=== PATIENT | female | born 1990 | race Caucasian/White ===

== ENCOUNTER → 2020-06-27 | Outpatient (CLI) | payer OTHER ==
--- NOTE | 2020-06-27 13:10 | US ---
EXAMINATION TYPE: US gallbladder DATE OF EXAM: 06/27/2020 COMPARISON: NONE CLINICAL HISTORY: R10.11 right upper quadrant pain. EXAM MEASUREMENTS: Liver Length: 21.1 cm Gallbladder Wall: 0.2 cm CBD: 0.3 cm Right Kidney: 12.3 x 5.3 x 6.8 cm Pancreas: Obscured by bowel gas Liver: Enlarged, attenuating. Hypoechoic area visualized adjacent to gallbladder measuring 1.7 x 1.3 x 2.0 cm, possible focal fatty sparring Gallbladder: Tiny echogenic foci visualized 0.4 cm Evidence for sonographic Claros's sign: no CBD: wnl as visualized, obscured by bowel gas Right Kidney: No hydronephrosis or masses seen IMPRESSION: 1. Mild fatty infiltration liver and hepatomegaly. 2. Tiny gallstones may be present
== END | disposition home or self-care (01) ==
LOC: RADUSWWP 10:59
PROVIDERS: ATTEND Surgery
DX: K76.0 Fatty (change of) liver, not elsewhere classified (principal); R16.0 Hepatomegaly, not elsewhere classified
CPT/HCPCS: 76705

== ENCOUNTER → 2020-10-15 | Outpatient (CLI) | payer OTHER ==
--- NOTE | 2020-10-15 16:08 | NM ---
EXAMINATION TYPE: NM hepatobiliary w EF DATE OF EXAM: 10/15/2020 COMPARISON: Gallbladder ultrasound June 27, 2020 HISTORY: Cholecystitis per order. Right upper quadrant pain. Heartburn and nausea. TECHNIQUE: After the intravenous administration of 4.5 mCi Tc 99m Mebrofenin hepatobiliary scintigrap hy is performed. Immediate images post injection. FINDINGS: There is satisfactory initial accumulation of tracer by the liver. The gallbladder is visualized wit hin 45 minutes. The small bowel activity is bowel wall seen even after 60 minutes. At one hour 8 ou nces of oral ensure plus is given to mimic CCK and gallbladder ejection fraction is calculated at 51 %, in the normal range. Therefore there is no scintigraphic evidence of cystic or common bile duct o bstruction to suggest acute cholecystitis or gallbladder dyskinesia. IMPRESSION: Exam is within normal limits.
== END ==
LOC: RADNMMAIN 06:46
PROVIDERS: ATTEND Family Medicine
DX: K81.9 Cholecystitis, unspecified (principal)
CPT/HCPCS: 78226; A9537

== ENCOUNTER 2021-04-10 08:31 | Inpatient (IN) | payer OTHER ==
[2021-04-10] MEDS ORDERED: SODIUM CHLORIDE 0.9% 1,000 ML IV ONE (08:48)
[2021-04-10] MEDS ORDERED: KETOROLAC 15 MG/ML 1 ML VIAL IVP STA (08:48)
--- NOTE | 2021-04-10 09:01 | ED ---
General Adult HPI - General Chief complaint: Extremity Injury, Lower Stated complaint: possible leg infection Time Seen by Provider: 04/10/21 08:36 Source: patient, RN notes reviewed, old records reviewed Mode of arrival: ambulatory Limitations: no limitations - History of Present Illness Initial comments: 30-year-old female presenting with right leg pain, pain and swelling in her groin and bilateral armpits. She has a history of hidradenitis. She is currently on Keflex asthma 2 weeks. She states that she's had low-grade fevers at home. She has had multiple abscesses that have been draining in both armpits and bilateral groins. She believes that the symptoms in her right leg are coming from infection in the right buttock. She denies trauma. She denies current . Denies URI symptoms. - Related Data Home Medications Medication Instructions Recorded Confirmed ALPRAZolam [Xanax] 0.25 mg PO DAILY PRN 04/10/21 04/10/21 Biotin 5 mg PO DAILY 04/10/21 04/10/21 Cephalexin [Keflex] 500 mg PO BID 04/10/21 04/10/21 Dapagliflozin Propanediol [Farxiga] 10 mg PO DAILY 04/10/21 04/10/21 Dextroamphetamine/Amphetamine 10 mg PO DAILY 04/10/21 04/10/21 [Dextroamp-Amphetamin 10 mg Tab] Levothyroxine Sodium [Synthroid] 300 mcg PO DAILY 04/10/21 04/10/21 Metoclopramide [Reglan] 5 mg PO AC-BID 04/10/21 04/10/21 Topiramate 50 mg PO BID 04/10/21 04/10/21 Warfarin [Coumadin] 7.5 mg PO DAILY 04/10/21 04/10/21 glipiZIDE [Glucotrol] 10 mg PO AC-BID 04/10/21 04/10/21 hydroCHLOROthiazide [Hydrodiuril] 25 mg PO DAILY 04/10/21 04/10/21 Allergies Allergy/AdvReac Type Severity Reaction Status Date / Time pregabalin [From Lyrica] Allergy Swelling Verified 04/10/21 10:25 Review of Systems ROS Statement: Those systems with pertinent positive or pertinent negative responses have been documented in the HPI. ROS Other: All systems not noted in ROS Statement are negative. Past Medical History Past Medical History: Diabetes Mellitus, Pulmonary Embolus (PE) Additional Past Medical History / Comment(s): DM type 2 History of Any Multi-Drug Resistant Organisms: None Reported Past Surgical History: Section Additional Past Surgical History / Comment(s): right leg debridement Past Psychological History: Anxiety Smoking Status: Current every day smoker Past Alcohol Use History: None Reported Past Drug Use History: None Reported General Exam Limitations: no limitations General appearance: alert, in no apparent distress Head exam: Present: atraumatic, normocephalic Eye exam: Present: normal appearance, PERRL ENT exam: Present: normal exam Neck exam: Present: normal inspection. Absent: tenderness, meningismus Respiratory exam: Present: normal lung sounds bilaterally. Absent: respiratory distress, wheezes Cardiovascular Exam: Present: normal rhythm, tachycardia GI/Abdominal exam: Present: soft. Absent: distended, tenderness, guarding External exam: Present: other (Induration and tenderness to palpation right groin. There is some evidence of previous drainage, not actively draining.) Extremities exam: Absent: pedal edema, calf tenderness Neurological exam: Present: alert, oriented X3, CN II-XII intact. Absent: motor sensory deficit Psychiatric exam: Present: normal affect, normal mood Skin exam: Present: warm, other (Induration, with multiple areas of previously draining abscesses in both axilla. No current cellulitis or fluctuant abscess. Groin with previously drained abscesses, induration and some minimal cellulitis into the right buttock with induration. Possible area of fluctuance right groin. ) Course Vital Signs 04/10/21 08:32 Temperature 97.5 F L Pulse Rate 128 H Respiratory 18 Rate Blood Pressure 129/76 O2 Sat by Pulse 99 Oximetry Medical Decision Making - Medical Decision Making 30-year-old female with hidradenitis of impetigo presenting with multiple draining abscesses both axilla, groin and right buttocks. The most significant of these is in the right groin. There is felt to be induration, tenderness to palpation, possible area of fluctuance although poorly defined. Patient has a white count of 20,000 and has been on oral antibiotics for the past 2 weeks. I did recommend admission for IV antibiotics. I discussed case with Dr. Dunn who will admit. Gen. surgery was placed on consult for evaluation. Diagnosis: Hidradenitis suppurativa, multiple cutaneous abscesses, failed outpatient treatment. - Lab Data Result diagrams: 04/10/21 08:58 04/10/21 08:58 Lab Results 04/10/21 04/10/21 04/10/21 Range/Units 08:58 08:58 08:58 WBC 19.5 H (3.8-10.6) k/uL RBC 5.28 (3.80-5.40) m/uL Hgb 16.3 H (11.4-16.0) gm/dL Hct 48.1 H (34.0-46.0) % MCV 91.0 (80.0-100.0) fL MCH 30.8 (25.0-35.0) pg MCHC 33.9 (31.0-37.0) g/dL RDW 14.1 (11.5-15.5) % Plt Count 195 (150-450) k/uL MPV 8.0 Neutrophils % 87 % Lymphocytes % 8 % Monocytes % 4 % Eosinophils % 1 % Basophils % 0 % Neutrophils # 17.1 H (1.3-7.7) k/uL Lymphocytes # 1.5 (1.0-4.8) k/uL Monocytes # 0.7 (0-1.0) k/uL Eosinophils # 0.2 (0-0.7) k/uL Basophils # 0.0 (0-0.2) k/uL Sodium 138 (137-145) mmol/L Potassium 4.0 (3.5-5.1) mmol/L Chloride 101 (98-107) mmol/L Carbon Dioxide 23 (22-30) mmol/L Anion Gap 14 mmol/L BUN 13 (7-17) mg/dL Creatinine 0.82 (0.52-1.04) mg/dL Est GFR (CKD-EPI)AfAm >90 (>60 ml/min/1.73 sqM) Est GFR (CKD-EPI)NonAf >90 (>60 ml/min/1.73 sqM) Glucose 235 H (74-99) mg/dL Plasma Lactic Acid Dell 1.7 (0.7-2.0) mmol/L Calcium 9.9 (8.4-10.2) mg/dL Magnesium 2.3 (1.6-2.3) mg/dL Total Bilirubin 1.0 (0.2-1.3) mg/dL AST 23 (14-36) U/L ALT 21 (4-34) U/L Alkaline Phosphatase 115 (38-126) U/L Total Protein 7.9 (6.3-8.2) g/dL Albumin 4.7 (3.5-5.0) g/dL Disposition Clinical Impression: Abscess of groin, right, Hidradenitis suppurativa Disposition: ADMITTED IP TO THIS [facility] Condition: Stable Is patient prescribed a controlled substance at d/c from ED?: No Referrals: Rodrick Rose MD [Primary Care Provider] - 1-2 days Decision to Admit Reason: Admit from EC Decision Date: 04/10/21 Decision Time: 10:41
[2021-04-10 09:31] LABS: Basophils % (A) 0 %; Eosinophils # (A) 0.2 k/uL (0-0.7); Eosinophils % (A) 1 %; HCT 48.1 % (34.0-46.0); HGB 16.3 gm/dL (11.4-16.0); Lymphocytes # (A) 1.5 k/uL (1.0-4.8); Lymphocytes % (A) 8 %; MCH 30.8 pg (25.0-35.0); MCHC 33.9 g/dL (31.0-37.0); Monocytes # (A) 0.7 k/uL (0-1.0); Monocytes % (A) 4 %; Neutrophils # (A) 17.1 k/uL (1.3-7.7); Neutrophils % (A) 87 %; Platelet Count 195 k/uL (150-450); RBC 5.28 m/uL (3.80-5.40); RDW 14.1 % (11.5-15.5); WBC 19.5 k/uL (3.8-10.6)
[2021-04-10 09:50] LABS: ALT 21 U/L (4-34); AST 23 U/L (14-36); African American GFR (CKD) >90 (>60 ml/min/1.73 sqM); Albumin 4.7 g/dL (3.5-5.0); Alkaline Phosphatase 115 U/L (38-126); Anion Gap 14 mmol/L; Blood Urea Nitrogen 13 mg/dL (7-17); Calcium 9.9 mg/dL (8.4-10.2); Carbon Dioxide 23 mmol/L (22-30); Chloride 101 mmol/L (98-107); Glucose 235 mg/dL (74-99); Magnesium 2.3 mg/dL (1.6-2.3); Non-African American GFR(CKD) >90 (>60 ml/min/1.73 sqM); Sodium 138 mmol/L (137-145); Total Protein 7.9 g/dL (6.3-8.2)
[2021-04-10] MEDS ORDERED: CLINDAMYCIN 600 MG in DEXTROSE 5% IN WATER 50 ML IVPB STA ×2 (10:11)
--- NOTE | 2021-04-10 10:28 | US ---
EXAMINATION TYPE: US venous doppler duplex LE RT DATE OF EXAM: 04/10/2021 10:09 AM COMPARISON: NONE CLINICAL HISTORY: DVT. EC patient with right suprapubic abscess causing pain radiating down right thi gh; patient stated has history of PE and is on Coumadin x 3 years. SIDE PERFORMED: Right TECHNIQUE: The lower extremity deep venous system is examined utilizing real time linear array sonog rodo with graded compression, doppler sonography and color-flow sonography. VESSELS IMAGED: Common Femoral Vein Deep Femoral Vein Greater Saphenous Vein * Femoral Vein Popliteal Vein Small Saphenous Vein * Proximal Calf Veins (* superficial vessels) Right Leg: Negative for DVT At right suprapubic area of pain oval, hypoechoic fluid area is noted in skin layer = 3.1 x 2.4 x 0.4 cm. IMPRESSION: NO DVT
[2021-04-10] MEDS ORDERED: cefTRIAXone IN SWFI 1,000 MG/10 ML SYRINGE IVP STA (10:34)
[2021-04-10] MEDS ORDERED: NALOXONE 0.4 MG/ML 1 ML VIAL IV PRN (10:35)
[2021-04-10] MEDS: SODIUM CHLORIDE 0.9% 1,000 ML IV SCH ×2 (10:50→20:10)
[2021-04-10] MEDS: MORPHINE SULFATE 4 MG/ML SYRINGE IV PRN ×3 (10:53→20:09)
[2021-04-10 10:55] LABS: C Reactive Protein 22.2 mg/dL (<1.0)
[2021-04-10] MEDS: IBUPROFEN 400 MG TAB PO PRN ×2 (14:38→22:14)
[2021-04-10 20:18] LABS: Glucose,Whole Blood 191 mg/dL (75-99)
[2021-04-10] MEDS: CLINDAMYCIN 600 MG in DEXTROSE 5% IN WATER 50 ML IVPB SCH ×2 (20:20)
[2021-04-10] MEDS ORDERED: ALPRAZolam 0.25 MG TAB PO PRN (21:29)
[2021-04-10] MEDS ORDERED: DEXTROAMPHETAMINE PO SCH (21:45)
[2021-04-10] MEDS ORDERED: [UNRECOGNIZED DRUG - OTHER] PO SCH (21:45)
[2021-04-10] MEDS ORDERED: WARFARIN 7.5 MG TAB PO SCH (21:45)
[2021-04-10] MEDS ORDERED: AMPHETAMINE PO SCH (21:45)
[2021-04-10] MEDS: glipiZIDE 10 MG TAB PO SCH (21:53)
[2021-04-10 22:49] LABS: INR 1.7 (<1.2); Prothrombin Time 17.3 sec (9.0-12.0)
[2021-04-10] MEDS: METOCLOPRAMIDE 5 MG TAB PO SCH (23:05)
[2021-04-10] MEDS: TOPIRAMATE 25 MG TAB PO SCH (23:05)
[2021-04-10] MEDS ORDERED: WARFARIN 2 MG TAB PO ONE (23:15)
--- NOTE | 2021-04-10 23:55 | HP ---
HISTORY AND PHYSICAL This is a 30-year-old female with right leg pain, swelling in her groin, bilateral armpits, history of hidradenitis, started on Keflex at home. Multiple abscesses draining in both armpits and bilateral groins, coming into the infection in the right buttock. Denies any trauma. The patient had an ultrasound in the ER which showed infection in the right buttock. She was started on IV antibiotics. HOME MEDICINES: 1. Xanax 0.25 daily p.r.n. 2. Keflex 500 b.i.d. 3. Adderall 10 mg daily. 4. Synthroid 300 daily. 5. Reglan 5 mg before meals t.i.d. 6. Farxiga 10 mg daily. 7. Topiramate 50 b.i.d. 8. Coumadin 7.5 daily. 9. Glucotrol 10 mg before meals b.i.d. 10.Hydrodiuril 25 mg daily. REVIEW OF SYSTEMS: Fourteen-point review of systems otherwise is negative. Diabetes mellitus, pulmonary embolism, C-sections, right leg prior debridement, history of anxiety, depression. PHYSICAL EXAMINATION: Vital signs stable. Afebrile. Mildly tachycardic. Lungs are clear. ABDOMEN: Soft. Hematology: Negative Homans. Palpation induration right groin, previous drainage, not actively draining. Psych: Alert and oriented x3. Multiple areas of induration draining abscesses both axillae, groin previously draining abscesses, induration, cellulitis in the buttocks. White count 19.5, hemoglobin 16.3. ASSESSMENT: 1. Abscess in groin, right side. 2. Hidradenitis suppurativa. Continue with broad-spectrum antibiotics. Infectious disease consult. Home medicines will be reordered. Pain control. MMODL / IJN: [id number] /
[2021-04-11] MEDS: MORPHINE SULFATE 4 MG/ML SYRINGE IV PRN ×2 (02:05→05:55)
[2021-04-11] MEDS: CLINDAMYCIN 600 MG in DEXTROSE 5% IN WATER 50 ML IVPB SCH ×4 (02:05→12:06)
[2021-04-11] MEDS: SODIUM CHLORIDE 0.9% 1,000 ML IV SCH ×4 (03:05→22:58)
[2021-04-11] MEDS: LEVOTHYROXINE 100 MCG TAB PO SCH (05:55)
[2021-04-11 06:56] LABS: Glucose,Whole Blood 166 mg/dL (75-99)
[2021-04-11] MEDS: IBUPROFEN 400 MG TAB PO PRN ×2 (07:34→17:34)
[2021-04-11] MEDS: hydroCHLOROthiazide 25 MG TAB PO SCH (07:35)
[2021-04-11] MEDS: glipiZIDE 10 MG TAB PO SCH ×2 (07:35→17:55)
[2021-04-11] MEDS: TOPIRAMATE 25 MG TAB PO SCH ×2 (07:35→20:35)
[2021-04-11] MEDS: METOCLOPRAMIDE 5 MG TAB PO SCH ×2 (07:35→17:53)
[2021-04-11] MEDS: NON FORMULARY DRUG (Dapagliflozin Propanediol [Farxiga] 10 MG Tablet) PO SCH (07:36)
--- NOTE | 2021-04-11 08:12 | P.GSCN ---
History of Present Illness Consult date: 04/11/21 History of present illness: 30-year-old female presented to the emergency department with complaints of right groin pain. She states that she does have a history of hidradenitis suppurativa for which she has received treatment in the past. She is not on any chronic regimen for this diagnosis. She states her last episode of abscess was approximately 5 months ago. She states that she has had previous incision and drainages secondary to this issue. She states that most of the time when she has a breakout, it is a superficial abscess, however this episode is different and feels deeper. There has been some mild drainage from the right groin. She believes she has had low-grade fevers at home. She is tearful with pain during exam. Review of Systems All systems: negative Past Medical History Past Medical History: Diabetes Mellitus, Pulmonary Embolus (PE) Additional Past Medical History / Comment(s): DM type 2, History of Any Multi-Drug Resistant Organisms: None Reported Past Surgical History: Section Additional Past Surgical History / Comment(s): right leg debridement Past Psychological History: Anxiety Smoking Status: Current every day smoker Past Alcohol Use History: None Reported Past Drug Use History: None Reported Medications and Allergies Home Medications Medication Instructions Recorded Confirmed Type ALPRAZolam [Xanax] 0.25 mg PO DAILY PRN 04/10/21 04/10/21 History Biotin 5 mg PO DAILY 04/10/21 04/10/21 History Cephalexin [Keflex] 500 mg PO BID 04/10/21 04/10/21 History Dapagliflozin Propanediol [Farxiga] 10 mg PO DAILY 04/10/21 04/10/21 History Dextroamphetamine/Amphetamine 10 mg PO DAILY 04/10/21 04/10/21 History [Dextroamp-Amphetamin 10 mg Tab] Levothyroxine Sodium [Synthroid] 300 mcg PO DAILY 04/10/21 04/10/21 History Metoclopramide [Reglan] 5 mg PO AC-BID 04/10/21 04/10/21 History Topiramate 50 mg PO BID 04/10/21 04/10/21 History Warfarin [Coumadin] 7.5 mg PO DAILY 04/10/21 04/10/21 History glipiZIDE [Glucotrol] 10 mg PO AC-BID 04/10/21 04/10/21 History hydroCHLOROthiazide [Hydrodiuril] 25 mg PO DAILY 04/10/21 04/10/21 History Allergies Allergy/AdvReac Type Severity Reaction Status Date / Time pregabalin [From Lyrica] Allergy Swelling Verified 04/10/21 10:25 Surgical - Exam Osteopathic Statement: *. No significant issues noted on an osteopathic structural exam other than those noted in the History and Physical/Consult. Vital Signs Temp Pulse Resp BP Pulse Ox 97.5 F L 128 H 18 129/76 99 04/10/21 08:32 04/10/21 08:32 04/10/21 08:32 04/10/21 08:32 04/10/21 08:32 - General well nourished - Eyes normal ocular movement - ENT no hearing loss - Neck trachea midline - Respiratory normal respiratory effort - Abdomen Abdomen: soft, non tender - Genitourinary Right pubis with palpable induration, mild grayish drainage, painful and tender to touch, no significant erythema - Psychiatric oriented to time, oriented to person, oriented to place Results - Labs 04/10/21 08:58 04/10/21 08:58 Abnormal Lab Results - Last 24 Hours (Table) 04/10/21 04/10/21 04/10/21 Range/Units 08:58 08:58 20:16 WBC 19.5 H (3.8-10.6) k/uL Hgb 16.3 H (11.4-16.0) gm/dL Hct 48.1 H (34.0-46.0) % Neutrophils # 17.1 H (1.3-7.7) k/uL PT (9.0-12.0) sec INR (<1.2) Glucose 235 H (74-99) mg/dL POC Glucose (mg/dL) 191 H (75-99) mg/dL C-Reactive Protein 22.2 H (<1.0) mg/dL 04/10/21 04/11/21 Range/Units 22:35 06:54 WBC (3.8-10.6) k/uL Hgb (11.4-16.0) gm/dL Hct (34.0-46.0) % Neutrophils # (1.3-7.7) k/uL PT 17.3 H (9.0-12.0) sec INR 1.7 H (<1.2) Glucose (74-99) mg/dL POC Glucose (mg/dL) 166 H (75-99) mg/dL C-Reactive Protein (<1.0) mg/dL Diabetes panel 04/10/21 Range/Units 08:58 Sodium 138 (137-145) mmol/L Potassium 4.0 (3.5-5.1) mmol/L Chloride 101 (98-107) mmol/L Carbon Dioxide 23 (22-30) mmol/L BUN 13 (7-17) mg/dL Creatinine 0.82 (0.52-1.04) mg/dL Glucose 235 H (74-99) mg/dL Calcium 9.9 (8.4-10.2) mg/dL AST 23 (14-36) U/L ALT 21 (4-34) U/L Alkaline Phosphatase 115 (38-126) U/L Total Protein 7.9 (6.3-8.2) g/dL Albumin 4.7 (3.5-5.0) g/dL Calcium panel 04/10/21 Range/Units 08:58 Calcium 9.9 (8.4-10.2) mg/dL Albumin 4.7 (3.5-5.0) g/dL Pituitary panel 04/10/21 Range/Units 08:58 Sodium 138 (137-145) mmol/L Potassium 4.0 (3.5-5.1) mmol/L Chloride 101 (98-107) mmol/L Carbon Dioxide 23 (22-30) mmol/L BUN 13 (7-17) mg/dL Creatinine 0.82 (0.52-1.04) mg/dL Glucose 235 H (74-99) mg/dL Calcium 9.9 (8.4-10.2) mg/dL Adrenal panel 04/10/21 Range/Units 08:58 Sodium 138 (137-145) mmol/L Potassium 4.0 (3.5-5.1) mmol/L Chloride 101 (98-107) mmol/L Carbon Dioxide 23 (22-30) mmol/L BUN 13 (7-17) mg/dL Creatinine 0.82 (0.52-1.04) mg/dL Glucose 235 H (74-99) mg/dL Calcium 9.9 (8.4-10.2) mg/dL Total Bilirubin 1.0 (0.2-1.3) mg/dL AST 23 (14-36) U/L ALT 21 (4-34) U/L Alkaline Phosphatase 115 (38-126) U/L Total Protein 7.9 (6.3-8.2) g/dL Albumin 4.7 (3.5-5.0) g/dL Assessment and Plan Plan: 30-year-old female with abscess versus cellulitis of the right groin. Likely secondary to history of hidradenitis suppurativa. Pain medications were adjusted. Infectious disease consultation is pending for antibiotic coverage. Ultrasound has been ordered to evaluate for any fluid buildup that may require drainage as there is no palpable fluctuance on exam. Further recommendations after ultrasound is completed.
[2021-04-11] MEDS: KETOROLAC 15 MG/ML 1 ML VIAL IVP SCH ×4 (08:42→22:57)
[2021-04-11] MEDS ORDERED: NON FORMULARY DRUG (Biotin [Biotin] 5 MG Capsule) PO SCH (09:00)
[2021-04-11 09:29] LABS: INR 1.58 (0.90-1.11); Prothrombin Time 16.7 sec (9.9-11.9)
[2021-04-11] MEDS: HYDROmorphone 1 MG/ML 1 ML SYRINGE IVP PRN ×4 (10:41→22:07)
--- NOTE | 2021-04-11 11:06 | US ---
EXAMINATION TYPE: US groin RT DATE OF EXAM: 04/11/2021 COMPARISON: US CLINICAL HISTORY: eval for abscess. Swelling at pubis to groin. Abscess. Superficial lesion seen. Area of concern scanned. Inflammation seen. Superficial abscess - 3.3 x 1.6 x 0.4 cm Diffuse subcutaneous edema with superficial elongated hypoechoic area as detailed above. No thick wal led drainable abscess. IMPRESSION: As above.
[2021-04-11 11:27] LABS: Glucose,Whole Blood 144 mg/dL (75-99)
[2021-04-11] MEDS: ACETAMINOPHEN TAB 325 MG TAB PO PRN (15:05)
[2021-04-11 16:30] LABS: Glucose,Whole Blood 185 mg/dL (75-99)
[2021-04-11] MEDS ORDERED: VANCOMYCIN 1,000 MG in SODIUM CHLORIDE 0.9% 250 ML IVPB STA (17:29)
[2021-04-11] MEDS ORDERED: IPRATROPIUM-ALBUTEROL 3 ML NEB INHALATION STA (17:31)
[2021-04-11] MEDS ORDERED: VANCOMYCIN IV PER PHARMACY 1 EACH MISC MISCELLANE PRN (17:35)
[2021-04-11] MEDS: VANCOMYCIN 2,000 MG in SODIUM CHLORIDE 0.9% 500 ML 500 ML IVPB SCH (17:45)
[2021-04-11] MEDS ORDERED: WARFARIN 2 MG TAB PO ONE (18:00)
--- NOTE | 2021-04-11 18:00 | XR ---
EXAMINATION TYPE: XR chest 1V portable DATE OF EXAM: 04/11/2021 COMPARISON: NONE HISTORY: Difficulty breathing TECHNIQUE: Single frontal view of the chest is obtained. FINDINGS: Low lung volumes which accentuates the cardiomediastinal silhouette. Prominence of the lung interstit ium likely secondary to low lung volumes. No dense focal consolidation, pleural effusion, or pneumoth orax. Visualized osseous structures appear intact. IMPRESSION: 1. Low lung volumes which accentuates the cardiomediastinal silhouette and lung interstitium. 2. No definite acute cardiopulmonary process.
[2021-04-11] MEDS: IPRATROPIUM-ALBUTEROL 3 ML NEB INHALATION SCH (18:09)
[2021-04-11 20:25] LABS: Glucose,Whole Blood 222 mg/dL (75-99)
[2021-04-11] MEDS: AMPICILLIN-SULBACTAM 3 GM in SODIUM CHLORIDE 0.9% 100 ML IVPB SCH (22:57)
--- NOTE | 2021-04-12 00:18 | P.CONS ---
History of Present Illness - Reason for Consult Consult date: 04/11/21 Groin abscess Requesting physician: Rodrick Rose - Chief Complaint right groin painful swelling x days - History of Present Illness History of present illness : Patient is a 30-year female presenting to the hospital yesterday morning for evaluation of the right groin pain in this patient who did have history of hidradenitis and a history of chronic skin source of infection patient started having a problem with the painful lump in the right groin area that has gradually increased in size becoming more painful patient describes the pain to be more of a throbbing almost 10 out of 10 in severity patient did have some chills but denies high-grade fever patient on presentation to the hospital was afebrile she did spike a fever this afternoon of 103 degrees forearm height patient has been tachycardic patient did have white count of 19.5 as of yesterday not repeated today did have normal kidney function as well as normal liver enzymes CRP was elevated blood culture previously currently pending patient did have a groin ultrasound which shows a superficial abscess 3.3 X1.6 x 0.4 cm general surgery is on the case, infectious disease was consulted for further management of antibiotic therapy Review of system: CONSTITUTIONAL: Positive for weakness along with the fever. EYES: No complaint. ENT: No complaint. RESPIRATORY: No complaint. CARDIOVASCULAR: No complaint. GENITOURINARY: No complaint. GASTROINTESTINAL: No complaint. MUSCULOSKELETAL: No complaint. INTEGUMENTARY: As per history of present illness. PSYCHOLOGIC: No complaint. ENDOCRINE: No complaint. NEUROLOGIC: No complaint. Past medical history : Reviewed, documented below Past surgical history : Reviewed, documented below Social history: Reviewed, documented below Medications: Reviewed, as documented below EXAMINATION: Vital sigans= Reviewed and documented below GENERAL DESCRIPTION: Middle-aged female lying in bed, no distress. No tachypnea or accessory muscle of respiration use. HEENT: Shows Pallor , no scleral icterus. Oral mucous membrane is dry. NECK: Trachea central, no thyromegaly. LUNGS: Unlabored breathing. Clear to auscultation anteriorly. No wheeze or cr ackle. HEART: S1, S2, regular rate and rhythm. ABDOMEN: Soft, no tenderness , guarding or rigidity, right groin and labia did have a swelling induration no significant drainage was noticed EXTREMITIES: No edema of feet. SKIN: No rash, no masses palpable. NEUROLOGICAL: The patient is awake, alert, oriented x3, mood and affect normal. LABS AND RADIOLOGY: Reviewed results see below Assessment : Patient presented to hospital with sepsis in this we did have a fever elevated white count source is right groin abscess as seen on the ultrasound and likely from gram-positive skin ian such as MRSA to the likely pathogen this likely gram-negative infection Plan: 1-discontinue clindamycin 2-vancomycin pharmacy to dose her with a target trough of 15 while watching her kidney function and Vanco trough closely. 3-Unasyn 3 g every 6 hours 4-await surgical drainage and deep cultures We will follow on clinical condition and cultures to further adjust medication if needed Thank you for this consultation we will follow the patient along with you Past Medical History Past Medical History: Diabetes Mellitus, Pulmonary Embolus (PE) Additional Past Medical History / Comment(s): DM type 2, History of Any Multi-Drug Resistant Organisms: None Reported Past Surgical History: Section Additional Past Surgical History / Comment(s): right leg debridement Past Psychological History: Anxiety Smoking Status: Current every day smoker Past Alcohol Use History: None Reported Past Drug Use History: None Reported Medications and Allergies Home Medications Medication Instructions Recorded Confirmed Type ALPRAZolam [Xanax] 0.25 mg PO DAILY PRN 04/10/21 04/10/21 History Biotin 5 mg PO DAILY 04/10/21 04/10/21 History Cephalexin [Keflex] 500 mg PO BID 04/10/21 04/10/21 History Dapagliflozin Propanediol [Farxiga] 10 mg PO DAILY 04/10/21 04/10/21 History Dextroamphetamine/Amphetamine 10 mg PO DAILY 04/10/21 04/10/21 History [Dextroamp-Amphetamin 10 mg Tab] Levothyroxine Sodium [Synthroid] 300 mcg PO DAILY 04/10/21 04/10/21 History Metoclopramide [Reglan] 5 mg PO AC-BID 04/10/21 04/10/21 History Topiramate 50 mg PO BID 04/10/21 04/10/21 History Warfarin [Coumadin] 7.5 mg PO DAILY 04/10/21 04/10/21 History glipiZIDE [Glucotrol] 10 mg PO AC-BID 04/10/21 04/10/21 History hydroCHLOROthiazide [Hydrodiuril] 25 mg PO DAILY 04/10/21 04/10/21 History Allergies Allergy/AdvReac Type Severity Reaction Status Date / Time pregabalin [From Lyrica] Allergy Swelling Verified 04/10/21 10:25 Physical Exam Vitals: Vital Signs Temp Pulse Pulse Resp BP BP Pulse Ox 04/11/21 07:49 98.9 F 100 18 108/70 95 04/11/21 00:54 98.7 F 91 15 116/66 95 04/10/21 19:10 98.1 F 94 16 102/58 95 04/10/21 17:30 98.4 F 97 18 126/58 96 Intake and Output 04/10/21 04/11/21 04/11/21 22:59 06:59 14:59 Other: Voiding Method Toilet Weight 122.47 kg Results CBC & Chem 7: 04/10/21 08:58 04/10/21 08:58 Labs: Abnormal Lab Results - Last 24 Hours (Table) 04/10/21 04/10/21 04/11/21 Range/Units 20:16 22:35 04:58 PT 17.3 H 16.7 H (9.0-12.0) sec INR 1.7 H 1.58 H (<1.2) POC Glucose (mg/dL) 191 H (75-99) mg/dL 04/11/21 04/11/21 Range/Units 06:54 11:26 PT (9.0-12.0) sec INR (<1.2) POC Glucose (mg/dL) 166 H 144 H (75-99) mg/dL Microbiology - Last 24 Hours (Table) 04/10/21 08:58 Blood Culture - Preliminary Blood No Growth after 24 hours 04/10/21 08:58 Blood Culture - Preliminary Blood No Growth after 24 hours
[2021-04-12] MEDS: HYDROmorphone 1 MG/ML 1 ML SYRINGE IVP PRN ×7 (02:34→23:05)
[2021-04-12] MEDS: AMPICILLIN-SULBACTAM 3 GM in SODIUM CHLORIDE 0.9% 100 ML IVPB SCH ×4 (05:54→23:06)
[2021-04-12] MEDS: KETOROLAC 15 MG/ML 1 ML VIAL IVP SCH ×4 (05:54→23:06)
[2021-04-12] MEDS: LEVOTHYROXINE 100 MCG TAB PO SCH (05:57)
[2021-04-12] MEDS: VANCOMYCIN 2,000 MG in SODIUM CHLORIDE 0.9% 500 ML 500 ML IVPB SCH ×2 (06:31→18:27)
[2021-04-12 06:46] LABS: Glucose,Whole Blood 175 mg/dL (75-99)
[2021-04-12 07:11] LABS: INR 2.9 (<1.2); Prothrombin Time 27.9 sec (9.0-12.0)
[2021-04-12] MEDS: NON FORMULARY DRUG (Dapagliflozin Propanediol [Farxiga] 10 MG Tablet) PO SCH (07:26)
[2021-04-12] MEDS: glipiZIDE 10 MG TAB PO SCH ×2 (07:40→17:32)
[2021-04-12] MEDS: TOPIRAMATE 25 MG TAB PO SCH ×2 (07:40→19:56)
[2021-04-12] MEDS: hydroCHLOROthiazide 25 MG TAB PO SCH (07:40)
[2021-04-12] MEDS: IBUPROFEN 400 MG TAB PO PRN (07:40)
[2021-04-12] MEDS: METOCLOPRAMIDE 5 MG TAB PO SCH ×2 (07:40→17:32)
[2021-04-12] MEDS: SODIUM CHLORIDE 0.9% 1,000 ML IV SCH (07:44)
[2021-04-12] MEDS ORDERED: LIDOCAINE 1% (PF) 10 MG/ML (30 ML SDV) SQ ONE (08:30)
[2021-04-12] MEDS: IPRATROPIUM-ALBUTEROL 3 ML NEB INHALATION SCH ×4 (08:41→20:13)
[2021-04-12 09:16] LABS: Basophils # (A) 0.07 X 10*3/uL (0.00-0.10); Basophils % (A) 0.4 %; Eosinophils # (A) 0.08 X 10*3/uL (0.04-0.35); Eosinophils % (A) 0.5 %; HCT 37.9 % (37.2-46.3); Lymphocytes # (A) 1.32 X 10*3/uL (0.90-5.00); Lymphocytes % (A) 7.4 %; MCH 28.6 pg (27.0-32.0); MCHC 31.7 g/dL (32.0-37.0); MCV 90.5 fL (80.0-97.0); Mean Platelet Volume 11.2 fL (9.5-12.2); Monocytes # (A) 1.25 X 10*3/uL (0.20-1.00); Monocytes % (A) 7.1 %; Neutrophils # (A) 14.79 X 10*3/uL (1.80-7.70); Neutrophils % (A) 83.4 %; Platelet Count 185 X 10*3/uL (140-440); RBC 4.19 X 10*6/uL (4.10-5.20); RDW 14.4 % (11.5-14.5); WBC 17.73 X 10*3/uL (4.50-10.00)
--- NOTE | 2021-04-12 09:35 | P.CNPUL ---
History of Present Illness Consult date: 04/12/21 Reason for consult: dyspnea, hypoxemia Chief complaint: Shortness of breath History of present illness: This is a pleasant 30-year-old female came into the hospital with right chronic infection and abscess formation, she has been admitted into the hospital through the emergency department, main symptoms were swelling and pain in the right leg and right groin also had discomfort in the armpits as well as, patient does have a history of hidradenitis, she takes Keflex for last 2 weeks, patient started having fever is low-grade at home also new abscess formation noted came into the hospital for further evaluation, Dr. Lambert from infectious disease is following as well, patient does have a significant history of the severe morbid obesity, anxiety disorder, recurrent pulmonary embolism type 2 diabetes mellitus and p ossible surgical services in the right [facility] patient does smoke about 1 pack per day, currently patient is on 2 L oxygen due to shortness of breath, on arrival she was noted to have white cell count 19,500, with a BUN/creatinine 13.3, right lower extremity ultrasound negative for DVT, ultrasound of the right groin revealed superficial abscess 3.31.614 cm in size, currently patient is on bronchodilator IV Unasyn, IV vancomycin, her oral hypoglycemic agent along with Coumadin, her chest x-ray done yesterday no acute active cardiopulmonary disease however small lung volumes has been noted Review of Systems All systems: negative Past Medical History Past Medical History: Diabetes Mellitus, Pulmonary Embolus (PE) Additional Past Medical History / Comment(s): DM type 2, History of Any Multi-Drug Resistant Organisms: None Reported Past Surgical History: Section Additional Past Surgical History / Comment(s): right leg debridement Past Psychological History: Anxiety Smoking Status: Current every day smoker Past Alcohol Use History: None Reported Past Drug Use History: None Reported Medications and Allergies Home Medications Medication Instructions Recorded Confirmed Type ALPRAZolam [Xanax] 0.25 mg PO DAILY PRN 04/10/21 04/10/21 History Biotin 5 mg PO DAILY 04/10/21 04/10/21 History Cephalexin [Keflex] 500 mg PO BID 04/10/21 04/10/21 History Dapagliflozin Propanediol [Farxiga] 10 mg PO DAILY 04/10/21 04/10/21 History Dextroamphetamine/Amphetamine 10 mg PO DAILY 04/10/21 04/10/21 History [Dextroamp-Amphetamin 10 mg Tab] Levothyroxine Sodium [Synthroid] 300 mcg PO DAILY 04/10/21 04/10/21 History Metoclopramide [Reglan] 5 mg PO AC-BID 04/10/21 04/10/21 History Topiramate 50 mg PO BID 04/10/21 04/10/21 History Warfarin [Coumadin] 7.5 mg PO DAILY 04/10/21 04/10/21 History glipiZIDE [Glucotrol] 10 mg PO AC-BID 04/10/21 04/10/21 History hydroCHLOROthiazide [Hydrodiuril] 25 mg PO DAILY 04/10/21 04/10/21 History Allergies Allergy/AdvReac Type Severity Reaction Status Date / Time pregabalin [From Lyrica] Allergy Swelling Verified 04/10/21 10:25 Physical Exam Vitals: Vital Signs Temp Pulse Pulse Resp BP Pulse Ox 04/12/21 09:06 110 H 04/12/21 08:41 102 H 04/12/21 07:53 99.8 F H 100 18 106/68 96 04/12/21 02:00 98.3 F 99 20 122/72 96 04/11/21 19:53 99.4 F 106 H 20 107/70 95 04/11/21 18:26 98.6 F 04/11/21 18:15 114 H 18 04/11/21 18:09 97 04/11/21 18:06 106 H 18 04/11/21 17:43 93 L 04/11/21 17:42 102.2 F H 124 H 20 130/68 86 L 04/11/21 15:07 103.1 F H 04/11/21 14:00 99.3 F 109 H 17 141/76 97 Intake and Output 04/11/21 04/12/21 04/12/21 22:59 06:59 14:59 Other: # Voids 3 1 - Constitutional General appearance: disheveled, morbidly obese - EENT Eyes: PERRLA Ears: bilateral: normal - Neck Carotids: bilateral: upstroke normal - Respiratory Respiratory: bilateral: CTA - Cardiovascular Heart sounds: normal: S1 Abnormal Heart Sounds: systolic murmur - Gastrointestinal General gastrointestinal: soft - Integumentary Right groin erythematous indurated inflammatory changes with brownish discharge - Neurologic Neurologic: CNII-XII intact - Musculoskeletal Musculoskeletal: generalized weakness - Psychiatric Psychiatric: appropriate affect, intact judgment & insight Results - Laboratory Findings CBC and BMP: 04/12/21 06:14 04/10/21 08:58 PT/INR, D-dimer PT 27.9 sec (9.0-12.0) H 04/12/21 06:14 INR 2.9 (<1.2) H 04/12/21 06:14 D-Dimer 0.52 mg/L FEU (<0.60) 04/11/21 16:57 Abnormal lab findings: Abnormal Labs 04/10/21 04/10/21 04/10/21 08:58 08:58 20:16 WBC 19.5 H Hgb 16.3 H Hct 48.1 H MCHC Immature Gran # Neutrophils # 17.1 H Monocytes # PT INR Glucose 235 H POC Glucose (mg/dL) 191 H C-Reactive Protein 22.2 H 04/10/21 04/11/21 04/11/21 22:35 04:58 06:54 WBC Hgb Hct MCHC Immature Gran # Neutrophils # Monocytes # PT 17.3 H 16.7 H INR 1.7 H 1.58 H Glucose POC Glucose (mg/dL) 166 H C-Reactive Protein 04/11/21 04/11/21 04/11/21 11:26 16:29 20:24 WBC Hgb Hct MCHC Immature Gran # Neutrophils # Monocytes # PT INR Glucose POC Glucose (mg/dL) 144 H 185 H 222 H C-Reactive Protein 04/12/21 04/12/21 04/12/21 06:14 06:14 06:45 WBC 17.73 H Hgb Hct MCHC 31.7 L Immature Gran # 0.22 H Neutrophils # 14.79 H Monocytes # 1.25 H PT 27.9 H INR 2.9 H Glucose POC Glucose (mg/dL) 175 H C-Reactive Protein - Diagnostic Findings Chest x-ray: report reviewed, image reviewed (Finding as noted above) Assessment and Plan Assessment: Acute hypoxic respiratory failure due to sepsis obesity hypoventilation syndrome and history of pulmonary embolism Likely sleep disorder breathing and sleep apnea to be evaluated on outpatient b asis for sleep apnea Right groin abscess formation History of prior pulmonary embolism currently denies any chest pain or shortness of breath to that extent Morbid obesity and likely sleep disorder breathing and sleep apnea Plan: Continue anticoagulation as per plan Continue deep breathing exercises incentive spirometry Broad-spectrum antibiotics Sleep study as outpatient Time with Patient: Greater than 30
[2021-04-12 09:47] LABS: African American GFR (CKD) 113.9 (60.0-200.0); Albumin 3.7 g/dL (3.80-4.90); Albumin/Globulin Ratio 1.68 (1.60-3.17); Anion Gap 9.3 mmol/L (4.00-12.00); BUN/Creat Ratio 18.75 Ratio (12.00-20.00); Calcium 8.5 mg/dL (8.7-10.3); Carbon Dioxide 20.7 mmol/L (21.6-31.8); Globulin 2.2 g/dL (1.6-3.3); Non-African American GFR(CKD) 98.2 (60.0-200.0); Potassium 3.7 mmol/L (3.5-5.5); Total Bilirubin 0.7 mg/dL (0.2-1.2); Total Protein 5.9 g/dL (6.2-8.2)
[2021-04-12 11:51] LABS: Glucose,Whole Blood 118 mg/dL (75-99)
--- NOTE | 2021-04-12 11:51 | P.PCN ---
Date of Procedure: 04/12/21 Preoperative Diagnosis: Abscess and cellulitis Postoperative Diagnosis: Right-sided groin abscess with cellulitis Procedure(s) Performed: incision and drainage of abscess Anesthesia: local Surgeon: Will Valle Pathology: other (Culture of abscess) Condition: stable Disposition: no change Indications for Procedure: 30-year-old female is admitted secondary to cellulitis and abscess. She is on IV antibiotics. Over last 24 hours, patient did have febrile episode and tachycardia. Ultrasound revealed a superficial abscess. Prior to my arrival today, patient did have spontaneous evacuation of turbid fluid from this area. There does appear to be additional fluid requiring evacuation. Risks, benefits and alternatives were provided to the patient. She did provide consent prior to procedure. Operative Findings: Drainage of turbid fluid Description of Procedure: Patient was prepped and draped in regular sterile fashion. Local anesthetic was administered. A incision was made over the abscess cavity. Loculations were broken with instrumentation. Evacuation of turbid fluid was noted. Cultures were taken. Wound was then packed. Some bleeding was noted as the patient is on anticoagulation. This will be monitored. An additional incision was made superior to this incision as there was additional concern for abscess at this site. Mild amount of purulent material was noted. This wound was also packed in similar fashion. Patient tolerated the procedure well.
[2021-04-12] MEDS: ACETAMINOPHEN TAB 325 MG TAB PO PRN (14:25)
[2021-04-12 16:32] LABS: Glucose,Whole Blood 202 mg/dL (75-99)
--- NOTE | 2021-04-12 16:59 | PN ---
PROGRESS NOTE DATE OF SERVICE: 04/12/2021 REASON FOR FOLLOWUP: Right groin abscess. INTERVAL HISTORY: The patient is afebrile. The patient denies having any chest pain. She has been complaining of some shortness of breath. No cough. No nausea or vomiting. No abdominal pain or any worsening pain to the right groin area. The patient is status post I and D of the abscess this morning by Surgery. PHYSICAL EXAMINATION: Blood pressure 135/76, pulse of 104, temperature 99. She is 97% on 2 L nasal cannula. GENERAL DESCRIPTION: General description is a middle-aged female lying in bed in no distress. RESPIRATORY SYSTEM: Unlabored breathing. Clear to auscultation anteriorly. HEART: S1, S2. Regular rate and rhythm. ABDOMEN: Soft. No tenderness. LABS: Hemoglobin is 12, white count 17.7, BUN of 15, creatinine 0.8. DIAGNOSTIC IMPRESSION AND PLAN: Patient with a right groin abscess, status post surgical drainage. Cultures currently pending. Patient to continue with vancomycin and Unasyn, adjusting antibiotic further based on the culture report. Continue supportive care. MMODL / IJN: [id number] /
--- NOTE | 2021-04-12 17:13 | CT ---
EXAMINATION TYPE: CT angio chest DATE OF EXAM: 04/12/2021 4:53 PM COMPARISON: Chest radiograph 04/11/2021 HISTORY: SOB, chest pain CT DLP: 524 mGycm Automated exposure control for dose reduction was used. CONTRAST: CTA scan of the thorax is performed with IV Contrast, patient injected with 100 mL of Isovue 370, pul monary embolism protocol. 2-D sagittal and coronal reformatted images were obtained.. FINDINGS: Suboptimal contrast bolus for evaluation of pulmonary embolism. Main pulmonary artery is mildly prominent measuring 3.6 cm in diameter. No definite filling defects within the pulmonary arteries to suggest pulmonary embolism. Cardiac size appears mildly enlarged. No pericardial effusion. Thoracic aorta is of normal caliber. N o mediastinal or hilar lymphadenopathy. No axillary lymphadenopathy. Multifocal groundglass opacities and consolidation throughout the lungs bilaterally. Additional linea r densities throughout the lungs likely subsegmental atelectasis and/or scarring. No pleural effusion or pneumothorax. Central airways are normal course and caliber. Limited views of the upper abdomen appear unremarkable. No acute osseous abnormality. Mild multilevel degenerative changes of the thoracic spine. IMPRESSION: 1. Suboptimal contrast bolus for pulmonary embolism evaluation; however, no definite evidence of pulm onary embolism. 2. Multifocal areas of groundglass and consolidation scattered throughout the lungs. Findings are non specific and may represent various infectious/inflammatory etiologies including atypical pneumonitis from COVID-19. 3. Mild cardiomegaly. 4. Mildly prominent main pulmonary artery measuring 3.6 cm in diameter. Findings may relate to underl gissel pulmonary hypertension.
[2021-04-12] MEDS ORDERED: WARFARIN 5 MG TAB PO ONE (18:00)
--- NOTE | 2021-04-12 19:22 | PN ---
PROGRESS NOTE This is an 30-year-old female who presented with cellulitis/abscess of the pelvic rectal area. CTA shows ground-glass appearance, multiple areas of ground-glass consolidation throughout the lungs; may represent possible atypical pneumonia or COVID- 19. Pulmonary hypertension. Will have to treat her like she has possible COVID and drain her wounds with possible superficial culture done by Dr. Valle. Prognosis is guarded. Broad-spectrum antibiotics will be continued. Will add steroids and zinc until COVID test is back. MMODL / IJN: [id number] /
[2021-04-12] MEDS: DEXAMETHASONE SOD PHOSPHATE 10 MG/ML 1 ML VIAL IV SCH (19:56)
[2021-04-12] MEDS: ZINC SULFATE 220 MG CAP PO SCH (19:57)
[2021-04-12 20:25] LABS: Glucose,Whole Blood 241 mg/dL (75-99)
[2021-04-13] MEDS: HYDROmorphone 1 MG/ML 1 ML SYRINGE IVP PRN ×3 (03:22→09:34)
[2021-04-13] MEDS: KETOROLAC 15 MG/ML 1 ML VIAL IVP SCH ×4 (05:26→23:42)
[2021-04-13] MEDS: LEVOTHYROXINE 100 MCG TAB PO SCH (05:26)
[2021-04-13] MEDS: AMPICILLIN-SULBACTAM 3 GM in SODIUM CHLORIDE 0.9% 100 ML IVPB SCH ×4 (05:27→23:41)
[2021-04-13] MEDS: VANCOMYCIN 2,000 MG in SODIUM CHLORIDE 0.9% 500 ML 500 ML IVPB SCH ×2 (06:12→18:10)
[2021-04-13 06:16] LABS: African American GFR (CKD) >90 (>60 ml/min/1.73 sqM); Non-African American GFR(CKD) >90 (>60 ml/min/1.73 sqM)
[2021-04-13 06:45] LABS: Prothrombin Time 38.3 sec (9.0-12.0)
[2021-04-13] MEDS: ZINC SULFATE 220 MG CAP PO SCH (07:26)
[2021-04-13] MEDS: glipiZIDE 10 MG TAB PO SCH ×2 (07:26→17:32)
[2021-04-13] MEDS: DEXAMETHASONE SOD PHOSPHATE 10 MG/ML 1 ML VIAL IV SCH (07:26)
[2021-04-13] MEDS: hydroCHLOROthiazide 25 MG TAB PO SCH (07:27)
[2021-04-13] MEDS: METOCLOPRAMIDE 5 MG TAB PO SCH ×2 (07:27→17:32)
[2021-04-13] MEDS: IPRATROPIUM-ALBUTEROL 3 ML NEB INHALATION SCH ×4 (07:27→19:19)
[2021-04-13] MEDS: NON FORMULARY DRUG (Dapagliflozin Propanediol [Farxiga] 10 MG Tablet) PO SCH (07:28)
[2021-04-13] MEDS: TOPIRAMATE 25 MG TAB PO SCH ×2 (07:28→20:35)
[2021-04-13 07:31] LABS: Glucose,Whole Blood 268 mg/dL (75-99)
--- NOTE | 2021-04-13 08:00 | P.PN ---
Subjective Progress Note Date: 04/13/21 Patient seen and examined at bedside. States she is feeling much better. Continues to have active drainage from incision and drainage site. Objective - Vital Signs Vital signs: Vital Signs Temp 98.0 F 04/13/21 07:49 Pulse 75 04/13/21 07:49 Resp 18 04/13/21 07:49 BP 116/71 04/13/21 07:49 Pulse Ox 94 L 04/13/21 07:49 Intake & Output 04/12/21 04/13/21 04/13/21 18:59 06:59 18:59 Other: Voiding Method Toilet # Voids 1 2 - Constitutional General appearance: Present: cooperative - Genitourinary Genitourinary Comment(s): Incision and drainage site somewhat softer, continued active drainage and bleeding - Labs CBC & Chem 7: 04/12/21 06:14 04/13/21 05:20 Labs: Abnormal Lab Results - Last 24 Hours (Table) 04/12/21 04/12/21 04/12/21 Range/Units 06:14 06:14 11:49 WBC 17.73 H (4.50-10.00) X 10*3/uL MCHC 31.7 L (32.0-37.0) g/dL Immature Gran # 0.22 H (0.00-0.04) X 10*3/uL Neutrophils # 14.79 H (1.80-7.70) X 10*3/uL Monocytes # 1.25 H (0.20-1.00) X 10*3/uL PT (9.0-12.0) sec INR (<1.2) Carbon Dioxide 20.7 L (21.6-31.8) mmol/L Glucose 175 H (70-110) mg/dL POC Glucose (mg/dL) 118 H (75-99) mg/dL Calcium 8.5 L (8.7-10.3) mg/dL Total Protein 5.9 L (6.2-8.2) g/dL Albumin 3.70 L (3.80-4.90) g/dL 04/12/21 04/12/21 04/13/21 Range/Units 16:31 20:23 05:20 WBC (4.50-10.00) X 10*3/uL MCHC (32.0-37.0) g/dL Immature Gran # (0.00-0.04) X 10*3/uL Neutrophils # (1.80-7.70) X 10*3/uL Monocytes # (0.20-1.00) X 10*3/uL PT 38.3 H (9.0-12.0) sec INR 4.0 H (<1.2) Carbon Dioxide (21.6-31.8) mmol/L Glucose (70-110) mg/dL POC Glucose (mg/dL) 202 H 241 H (75-99) mg/dL Calcium (8.7-10.3) mg/dL Total Protein (6.2-8.2) g/dL Albumin (3.80-4.90) g/dL 04/13/21 Range/Units 06:48 WBC (4.50-10.00) X 10*3/uL MCHC (32.0-37.0) g/dL Immature Gran # (0.00-0.04) X 10*3/uL Neutrophils # (1.80-7.70) X 10*3/uL Monocytes # (0.20-1.00) X 10*3/uL PT (9.0-12.0) sec INR (<1.2) Carbon Dioxide (21.6-31.8) mmol/L Glucose (70-110) mg/dL POC Glucose (mg/dL) 268 H (75-99) mg/dL Calcium (8.7-10.3) mg/dL Total Protein (6.2-8.2) g/dL Albumin (3.80-4.90) g/dL Microbiology - Last 24 Hours (Table) 04/12/21 11:30 Gram Stain - Preliminary Groin Wound Culture - Preliminary 04/11/21 16:57 Blood Culture - Preliminary Blood No Growth after 24 hours 04/12/21 11:30 Anaerobic Culture - Preliminary Groin 04/10/21 08:58 Blood Culture - Preliminary Blood No Growth after 48 hours 04/10/21 08:58 Blood Culture - Preliminary Blood No Growth after 48 hours Assessment and Plan Plan: Status post incision and drainage of groin abscess with history of hidradenitis. Patient appears to be improving. INR is significantly elevated at 4.0, I would recommend holding Coumadin dose as it is currently supratherapeutic. Continue IV antibiotics based on ID recommendations. Await cultures.
[2021-04-13 11:15] LABS: Glucose,Whole Blood 319 mg/dL (75-99)
[2021-04-13] MEDS: IBUPROFEN 400 MG TAB PO PRN ×2 (12:42→17:32)
[2021-04-13 12:50] LABS: Basophils % (A) 0 %; Eosinophils # (A) 0.1 k/uL (0-0.7); Eosinophils % (A) 0 %; HCT 40.1 % (34.0-46.0); Hypochromasia Slight; Lymphocytes # (A) 0.7 k/uL (1.0-4.8); Lymphocytes % (A) 5 %; MCH 30.5 pg (25.0-35.0); MCHC 32.5 g/dL (31.0-37.0); MCV 93.9 fL (80.0-100.0); Mean Platelet Volume 10.3; Monocytes # (A) 0.4 k/uL (0-1.0); Monocytes % (A) 3 %; Neutrophils # (A) 14.5 k/uL (1.3-7.7); Neutrophils % (A) 92 %; Platelet Count 227 k/uL (150-450); RBC 4.27 m/uL (3.80-5.40); RDW 14.1 % (11.5-15.5); WBC 15.8 k/uL (3.8-10.6)
[2021-04-13 13:08] LABS: ALT 26 U/L (4-34); AST 21 U/L (14-36); Albumin 3.4 g/dL (3.5-5.0); Albumin/Globulin Ratio 1.2; Alkaline Phosphatase 120 U/L (38-126); Anion Gap 9 mmol/L; Blood Urea Nitrogen 16 mg/dL (7-17); Calcium 9.1 mg/dL (8.4-10.2); Carbon Dioxide 20 mmol/L (22-30); Chloride 105 mmol/L (98-107); Globulin 2.8 g/dL; Glucose 291 mg/dL (74-99); Potassium 4.3 mmol/L (3.5-5.1); Sodium 134 mmol/L (137-145); Total Bilirubin 0.5 mg/dL (0.2-1.3); Total Protein 6.2 g/dL (6.3-8.2)
[2021-04-13] MEDS: ACETAMINOPHEN TAB 325 MG TAB PO PRN (14:53)
[2021-04-13] MEDS ORDERED: VANCOMYCIN TROUGH DUE 1 EACH MISC MISCELLANE ONE (17:00)
[2021-04-13 17:08] LABS: Glucose,Whole Blood 355 mg/dL (75-99)
--- NOTE | 2021-04-13 17:17 | PN ---
PROGRESS NOTE DATE OF SERVICE: 04/13/2021 REASON FOR FOLLOWUP: Right groin abscess. INTERVAL HISTORY: The patient is afebrile. The patient is feeling slightly better today. She is breathing comfortably. The patient denies having any chest pain. Minimal cough. No vomiting. No abdominal pain or diarrhea. Overall pain and discomfort to the groin has decreased. PHYSICAL EXAMINATION: Her blood pressure is 117/65, pulse 82, temperature 97.7. She is 92% on 2 L nasal cannula. GENERAL DESCRIPTION: General description is a middle-aged female lying in bed in no distress. RESPIRATORY SYSTEM: Unlabored breathing. Decreased intensity of breath sounds. No wheeze. HEART: S1, S2. Regular rate and rhythm. ABDOMEN: Soft. No tenderness. LABS: White count 15.8, BUN of 16, creatinine 0.71. DIAGNOSTIC IMPRESSION AND PLAN: Patient with a right groin abscess, status post drainage, abnormal CT, possibly infection. Clinically not behaving as . The patient will continue with Unasyn and vancomycin while waiting for the culture to finalized and continue with supportive care. MMODL / IJN: [id number] /
[2021-04-13] MEDS: INSULIN ASPART (NovoLOG) 100 UNIT/ML VIAL SQ SCH ×2 (17:54→20:36)
[2021-04-13] MEDS ORDERED: WARFARIN 0.5 MG TAB PO ONE (18:00)
[2021-04-13] MEDS: BUTALB/APAP/CAFF 50-325-40MG TAB PO PRN (18:00)
--- NOTE | 2021-04-13 18:10 | P.PN ---
Subjective Progress Note Date: 04/13/21 Principal diagnosis: Acute hypoxic respiratory failure due to sepsis obesity hypoventilation syndrome and history of pulmonary embolism Bilateral pneumonia Likely sleep disorder breathing and sleep apnea to be evaluated on outpatient basis for sleep apnea Right groin abscess formation History of prior pulmonary embolism currently denies any chest pain or shortness of breath to that extent Morbid obesity and likely sleep disorder breathing and sleep apnea 04/13/2021, patient seen eval reexamined still short of breath, ongoing intermittent dry nonproductive cough is present, patient has 2 L oxygen saturation is 94% however at room air desaturated to 88%, computed tomography scan of the chest reviewed bilateral basal pneumonia is present, with patchy infiltrate involving upper lobe as well her covert testing is negative, currently patient has been on IV Unasyn along with vancomycin we will add IV steroids as well in order sputum studies This is a pleasant 30-year-old female came into the hospital with right chronic infection and abscess formation, she has been admitted into the hospital through the emergency department, main symptoms were swelling and pain in the right leg and right groin also had discomfort in the armpits as well as, patient does have a history of hidradenitis, she takes Keflex for last 2 weeks, patient started having fever is low-grade at home also new abscess formation noted came into the hospital for further evaluation, Dr. Lambert from infectious disease is following as well, patient does have a significant history of the severe morbid obesity, anxiety disorder, recurrent pulmonary embolism type 2 diabetes mellitus and possible surgical services in the right [facility] patient does smoke about 1 pack per day, currently patient is on 2 L oxygen due to shortness of breath, on arrival she was noted to have white cell count 19,500, with a BUN/creatinine 13.3, right lower extremity ultrasound negative for DVT, ultrasound of the right groin revealed superficial abscess 3.31.614 cm in size, currently patient is on bronchodilator IV Unasyn, IV vancomycin, her oral hypoglycemic agent along with Coumadin, her chest x-ray done yesterday no acute active cardiopulmonary disease however small lung volumes has been noted Objective - Vital Signs Vital signs: Vital Signs Temp 97.7 F 04/13/21 14:00 Pulse 83 04/13/21 15:42 Resp 18 04/13/21 14:00 BP 117/65 04/13/21 14:00 Pulse Ox 92 L 04/13/21 14:00 Intake & Output 04/12/21 04/13/21 04/13/21 18:59 06:59 18:59 Other: Voiding Method Toilet Toilet # Voids 1 2 3 - Exam - Constitutional General appearance: disheveled, morbidly obese - EENT Eyes: PERRLA Ears: bilateral: normal - Neck Carotids: bilateral: upstroke normal - Respiratory Respiratory: bilateral: CTA - Cardiovascular Heart sounds: normal: S1 Abnormal Heart Sounds: systolic murmur - Gastrointestinal General gastrointestinal: soft - Integumentary Right groin erythematous indurated inflammatory changes with brownish discharge - Neurologic Neurologic: CNII-XII intact - Musculoskeletal Musculoskeletal: generalized weakness - Psychiatric Psychiatric: appropriate affect, intact judgment & insight - Labs CBC & Chem 7: 04/13/21 05:20 04/13/21 05:20 Labs: Abnormal Lab Results - Last 24 Hours (Table) 04/12/21 04/13/21 04/13/21 Range/Units 20:23 05:20 05:20 WBC (3.8-10.6) k/uL Neutrophils # (1.3-7.7) k/uL Lymphocytes # (1.0-4.8) k/uL PT 38.3 H (9.0-12.0) sec INR 4.0 H (<1.2) Sodium 134 L (137-145) mmol/L Carbon Dioxide 20 L (22-30) mmol/L Glucose 291 H (74-99) mg/dL POC Glucose (mg/dL) 241 H (75-99) mg/dL Total Protein 6.2 L (6.3-8.2) g/dL Albumin 3.4 L (3.5-5.0) g/dL 04/13/21 04/13/21 04/13/21 Range/Units 05:20 06:48 11:13 WBC 15.8 H (3.8-10.6) k/uL Neutrophils # 14.5 H (1.3-7.7) k/uL Lymphocytes # 0.7 L (1.0-4.8) k/uL PT (9.0-12.0) sec INR (<1.2) Sodium (137-145) mmol/L Carbon Dioxide (22-30) mmol/L Glucose (74-99) mg/dL POC Glucose (mg/dL) 268 H 319 H (75-99) mg/dL Total Protein (6.3-8.2) g/dL Albumin (3.5-5.0) g/dL 04/13/21 Range/Units 16:43 WBC (3.8-10.6) k/uL Neutrophils # (1.3-7.7) k/uL Lymphocytes # (1.0-4.8) k/uL PT (9.0-12.0) sec INR (<1.2) Sodium (137-145) mmol/L Carbon Dioxide (22-30) mmol/L Glucose (74-99) mg/dL POC Glucose (mg/dL) 355 H (75-99) mg/dL Total Protein (6.3-8.2) g/dL Albumin (3.5-5.0) g/dL Microbiology - Last 24 Hours (Table) 04/12/21 11:30 Gram Stain - Preliminary Groin Wound Culture - Preliminary 04/10/21 08:58 Blood Culture - Preliminary Blood No Growth after 72 hours 04/10/21 08:58 Blood Culture - Preliminary Blood No Growth after 72 hours 04/11/21 16:57 Blood Culture - Preliminary Blood No Growth after 24 hours 04/12/21 11:30 Anaerobic Culture - Preliminary Groin Assessment and Plan Assessment: Acute hypoxic respiratory failure due to sepsis Bilateral pneumonia obesity hypoventilation syndrome and history of pulmonary embolism Likely sleep disorder breathing and sleep apnea to be evaluated on outpatient basis for sleep apnea Right groin abscess formation History of prior pulmonary embolism currently denies any chest pain or shortness of breath to that extent Morbid obesity and likely sleep disorder breathing and sleep apnea Plan: IV steroids Continue anticoagulation as per plan Continue deep breathing exercises incentive spirometry Broad-spectrum antibiotics Sputum studies Sleep study as outpatient Time with Patient: Greater than 30
[2021-04-13] MEDS: SYMBICORT 160-4.5 MCG INHALER INHALATION SCH (19:18)
--- NOTE | 2021-04-13 19:43 | PN ---
PROGRESS NOTE This patient remains on IV Unasyn and vancomycin. Blood cultures are pending. Surgery did some debridement. Chest CTA shows ground-glass, possible pneumonia; unclear etiology. COVID is apparently negative. She is feeling better. She has active drainage from the site. Blood pressure 116/71, O2 94, temperature 98, pulse 75, respiratory rate 18. White count 17.75. Lungs clear. Cardiovascular S1, S2. Blood cultures negative. Coumadin is being held due to the INR being elevated. Check INR. Wait for cultures. Continue broad-spectrum antibiotics. She appears to be improving. MMODL / IJN: [id number] /
[2021-04-13 20:27] LABS: Glucose,Whole Blood 317 mg/dL (75-99)
[2021-04-13] MEDS: ALPRAZolam 0.25 MG TAB PO PRN (20:38)
[2021-04-13] MEDS ORDERED: INSULIN ASPART (NovoLOG) 100 UNIT/ML VIAL SQ SCH (21:00)
[2021-04-14] MEDS: ALPRAZolam 0.25 MG TAB PO PRN ×2 (05:08→15:59)
[2021-04-14] MEDS: KETOROLAC 15 MG/ML 1 ML VIAL IVP SCH (05:08)
[2021-04-14] MEDS: LEVOTHYROXINE 100 MCG TAB PO SCH (05:08)
[2021-04-14] MEDS: AMPICILLIN-SULBACTAM 3 GM in SODIUM CHLORIDE 0.9% 100 ML IVPB SCH ×4 (05:09→22:45)
[2021-04-14 06:01] LABS: Basophils % (A) 0 %; Eosinophils % (A) 0 %; HCT 36.2 % (34.0-46.0); HGB 12.1 gm/dL (11.4-16.0); Lymphocytes # (A) 1.4 k/uL (1.0-4.8); Lymphocytes % (A) 9 %; MCH 30.7 pg (25.0-35.0); MCHC 33.4 g/dL (31.0-37.0); MCV 92.1 fL (80.0-100.0); Mean Platelet Volume 8.6; Monocytes # (A) 0.7 k/uL (0-1.0); Monocytes % (A) 4 %; Neutrophils # (A) 14.2 k/uL (1.3-7.7); Neutrophils % (A) 86 %; Platelet Count 238 k/uL (150-450); RBC 3.93 m/uL (3.80-5.40); RDW 13.9 % (11.5-15.5); WBC 16.6 k/uL (3.8-10.6)
[2021-04-14] MEDS: BUTALB/APAP/CAFF 50-325-40MG TAB PO PRN (06:02)
[2021-04-14] MEDS: ACETAMINOPHEN TAB 325 MG TAB PO PRN (06:08)
[2021-04-14 06:14] LABS: ALT 21 U/L (4-34); AST 21 U/L (14-36); African American GFR (CKD) >90 (>60 ml/min/1.73 sqM); Albumin 3.2 g/dL (3.5-5.0); Albumin/Globulin Ratio 1.2; Alkaline Phosphatase 102 U/L (38-126); Anion Gap 10 mmol/L; Blood Urea Nitrogen 19 mg/dL (7-17); Calcium 9.1 mg/dL (8.4-10.2); Carbon Dioxide 20 mmol/L (22-30); Chloride 109 mmol/L (98-107); Globulin 2.7 g/dL; Glucose 232 mg/dL (74-99); Non-African American GFR(CKD) >90 (>60 ml/min/1.73 sqM); Potassium 3.5 mmol/L (3.5-5.1); Sodium 139 mmol/L (137-145); Total Bilirubin 0.4 mg/dL (0.2-1.3); Total Protein 5.9 g/dL (6.3-8.2)
[2021-04-14 06:15] LABS: INR 3.9 (<1.2); Prothrombin Time 37.7 sec (9.0-12.0)
[2021-04-14] MEDS: VANCOMYCIN 2,250 MG in SODIUM CHLORIDE 0.9% 500 ML 500 ML IVPB SCH ×2 (06:47→17:27)
[2021-04-14 06:48] LABS: Glucose,Whole Blood 230 mg/dL (75-99)
[2021-04-14] MEDS: METOCLOPRAMIDE 5 MG TAB PO SCH ×2 (07:26→17:26)
[2021-04-14] MEDS: INSULIN ASPART (NovoLOG) 100 UNIT/ML VIAL SQ SCH ×4 (07:26→21:13)
[2021-04-14] MEDS: glipiZIDE 10 MG TAB PO SCH ×2 (07:26→17:26)
[2021-04-14] MEDS: NON FORMULARY DRUG (Dapagliflozin Propanediol [Farxiga] 10 MG Tablet) PO SCH (08:50)
[2021-04-14] MEDS: IPRATROPIUM-ALBUTEROL 3 ML NEB INHALATION SCH ×4 (09:09→20:56)
[2021-04-14] MEDS: SYMBICORT 160-4.5 MCG INHALER INHALATION SCH ×2 (09:09→20:57)
[2021-04-14] MEDS: DEXAMETHASONE SOD PHOSPHATE 10 MG/ML 1 ML VIAL IV SCH (09:11)
[2021-04-14] MEDS: TOPIRAMATE 25 MG TAB PO SCH ×2 (09:12→20:07)
[2021-04-14] MEDS: ZINC SULFATE 220 MG CAP PO SCH (09:12)
[2021-04-14] MEDS: hydroCHLOROthiazide 25 MG TAB PO SCH (09:12)
[2021-04-14] MEDS: methylPREDNISolone SOD SUCCI 125 MG/2 ML VIAL IV SCH ×3 (09:57→22:44)
[2021-04-14] MEDS: LORazepam 2 MG/ML INJ IV PRN ×2 (11:12→17:27)
[2021-04-14 11:35] LABS: Glucose,Whole Blood 163 mg/dL (75-99)
[2021-04-14] MEDS: IBUPROFEN 400 MG TAB PO PRN ×2 (11:45→20:07)
--- NOTE | 2021-04-14 11:55 | P.PN ---
Subjective Progress Note Date: 04/14/21 Principal diagnosis: Acute hypoxic respiratory failure due to sepsis obesity hypoventilation syndrome and history of pulmonary embolism Bilateral pneumonia Likely sleep disorder breathing and sleep apnea to be evaluated on outpatient basis for sleep apnea Right groin abscess formation History of prior pulmonary embolism currently denies any chest pain or shortness of breath to that extent Morbid obesity and likely sleep disorder breathing and sleep apnea 10/12/2020, patient seen eval reexamined labs reviewed medications reviewed care plan discussed, patient remains short of breath with intermittent dry nonproductive cough oxygen is up to 3 L now, her heart over test came back negative, white cell count is up to 16,600 hemoglobin and hematocrit is 12 and 36 PT/INR is 37 3.9, BUN/creatinine normal sugars to 30 and 163, I have reviewed and discussed with the patient at length given that recurrent pustular infection is present we will evaluate for IgG deficiency syndrome, sometimes have been ordered we'll also discussed with infectious disease services 04/13/2021, patient seen eval reexamined still short of breath, ongoing intermittent dry nonproductive cough is present, patient has 2 L oxygen saturation is 94% however at room air desaturated to 88%, computed tomography scan of the chest reviewed bilateral basal pneumonia is present, with patchy infiltrate involving upper lobe as well her covert testing is negative, currently patient has been on IV Unasyn along with vancomycin we will add IV steroids as well in order sputum studies This is a pleasant 30-year-old female came into the hospital with right chronic infection and abscess formation, she has been admitted into the hospital through the emergency department, main symptoms were swelling and pain in the right leg and right groin also had discomfort in the armpits as well as, patient does have a history of hidradenitis, she takes Keflex for last 2 weeks, patient started having fever is low-grade at home also new abscess formation noted came into the hospital for further evaluation, Dr. Lambert from infectious disease is following as well, patient does have a significant history of the severe morbid obesity, anxiety disorder, recurrent pulmonary embolism type 2 diabetes mellitus and poss ible surgical services in the [facility] patient does smoke about 1 pack per day, currently patient is on 2 L oxygen due to shortness of breath, on arrival she was noted to have white cell count 19,500, with a BUN/creatinine 13.3, right lower extremity ultrasound negative for DVT, ultrasound of the right groin revealed superficial abscess 3.31.614 cm in size, currently patient is on bronchodilator IV Unasyn, IV vancomycin, her oral hypoglycemic agent along with Coumadin, her chest x-ray done yesterday no acute active cardiopulmonary disease however small lung volumes has been noted Objective - Vital Signs Vital signs: Vital Signs Temp 98.6 F 04/14/21 06:59 Pulse 84 04/14/21 09:21 Resp 24 04/14/21 08:29 BP 133/75 04/14/21 06:59 Pulse Ox 94 L 04/14/21 06:59 Intake & Output 04/13/21 04/14/21 04/14/21 18:59 06:59 18:59 Intake Total 240 Balance 240 Intake: Oral 240 Other: Voiding Method Toilet Toilet # Voids 3 2 - Exam - Constitutional General appearance: disheveled, morbidly obese - EENT Eyes: PERRLA Ears: bilateral: normal - Neck Carotids: bilateral: upstroke normal - Respiratory Respiratory: bilateral: CTA, however few basal crackles cannot be excluded - Cardiovascular Heart sounds: normal: S1 Abnormal Heart Sounds: systolic murmur - Gastrointestinal General gastrointestinal: soft - Integumentary Right groin erythematous indurated inflammatory changes with brownish discharge - Neurologic Neurologic: CNII-XII intact - Musculoskeletal Musculoskeletal: generalized weakness - Psychiatric Psychiatric: appropriate affect, intact judgment & insight, however patient broke into tears - Labs CBC & Chem 7: 04/14/21 05:21 04/14/21 05:21 Labs: Abnormal Lab Results - Last 24 Hours (Table) 04/13/21 04/13/21 04/13/21 Range/Units 05:20 05:20 16:43 WBC 15.8 H (3.8-10.6) k/uL Neutrophils # 14.5 H (1.3-7.7) k/uL Lymphocytes # 0.7 L (1.0-4.8) k/uL PT (9.0-12.0) sec INR (<1.2) Sodium 134 L (137-145) mmol/L Chloride (98-107) mmol/L Carbon Dioxide 20 L (22-30) mmol/L BUN (7-17) mg/dL Glucose 291 H (74-99) mg/dL POC Glucose (mg/dL) 355 H (75-99) mg/dL Lactate Dehydrogenase (313-618) U/L Total Protein 6.2 L (6.3-8.2) g/dL Albumin 3.4 L (3.5-5.0) g/dL 04/13/21 04/13/21 04/14/21 Range/Units 17:49 20:25 05:21 WBC (3.8-10.6) k/uL Neutrophils # (1.3-7.7) k/uL Lymphocytes # (1.0-4.8) k/uL PT (9.0-12.0) sec INR (<1.2) Sodium (137-145) mmol/L Chloride 109 H (98-107) mmol/L Carbon Dioxide 20 L (22-30) mmol/L BUN 19 H (7-17) mg/dL Glucose 232 H (74-99) mg/dL POC Glucose (mg/dL) 317 H (75-99) mg/dL Lactate Dehydrogenase 648 H (313-618) U/L Total Protein 5.9 L (6.3-8.2) g/dL Albumin 3.2 L (3.5-5.0) g/dL 04/14/21 04/14/21 04/14/21 Range/Units 05:21 05:21 06:47 WBC 16.6 H (3.8-10.6) k/uL Neutrophils # 14.2 H (1.3-7.7) k/uL Lymphocytes # (1.0-4.8) k/uL PT 37.7 H (9.0-12.0) sec INR 3.9 H (<1.2) Sodium (137-145) mmol/L Chloride (98-107) mmol/L Carbon Dioxide (22-30) mmol/L BUN (7-17) mg/dL Glucose (74-99) mg/dL POC Glucose (mg/dL) 230 H (75-99) mg/dL Lactate Dehydrogenase (313-618) U/L Total Protein (6.3-8.2) g/dL Albumin (3.5-5.0) g/dL 04/14/21 Range/Units 11:34 WBC (3.8-10.6) k/uL Neutrophils # (1.3-7.7) k/uL Lymphocytes # (1.0-4.8) k/uL PT (9.0-12.0) sec INR (<1.2) Sodium (137-145) mmol/L Chloride (98-107) mmol/L Carbon Dioxide (22-30) mmol/L BUN (7-17) mg/dL Glucose (74-99) mg/dL POC Glucose (mg/dL) 163 H (75-99) mg/dL Lactate Dehydrogenase (313-618) U/L Total Protein (6.3-8.2) g/dL Albumin (3.5-5.0) g/dL Microbiology - Last 24 Hours (Table) 04/10/21 08:58 Blood Culture - Preliminary Blood No Growth after 96 hours 04/10/21 08:58 Blood Culture - Preliminary Blood No Growth after 96 hours 04/11/21 16:57 Blood Culture - Preliminary Blood No Growth after 48 hours 04/12/21 11:30 Gram Stain - Preliminary Groin Wound Culture - Preliminary Assessment and Plan Assessment: Acute hypoxic respiratory failure due to sepsis Bilateral pneumonia likely bacterial obesity hypoventilation syndrome and history of pulmonary embolism Likely sleep disorder breathing and sleep apnea to be evaluated on outpatient basis for sleep apnea Right groin abscess formation and abscesses in axilla History of prior pulmonary embolism currently denies any chest pain or shortness of breath to that extent Morbid obesity and likely sleep disorder breathing and sleep apnea Plan: IV steroids IV antibiotics IgG and subtypes Continue anticoagulation as per plan Continue deep breathing exercises incentive spirometry Sputum studies Sleep study as outpatient Time with Patient: Greater than 30
--- NOTE | 2021-04-14 15:45 | P.PN ---
Subjective Progress Note Date: 04/14/21 Patient seen and examined at bedside. She states she is short of breath at this time. States groin pain is much improved. Objective - Vital Signs Vital signs: Vital Signs Temp 98.6 F 04/14/21 14:00 Pulse 89 04/14/21 15:24 Resp 21 04/14/21 15:24 BP 135/73 04/14/21 15:24 Pulse Ox 91 L 04/14/21 15:24 Intake & Output 04/13/21 04/14/21 04/14/21 18:59 06:59 18:59 Intake Total 240 Balance 240 Intake: Oral 240 Other: Voiding Method Toilet Toilet # Voids 3 2 - Constitutional General appearance: Present: cooperative - Respiratory Details: Short of breath on exam - Integumentary Integumentary Comment(s): Improved erythema and induration of right groin - Psychiatric Psychiatric: Present: A&O x's 3 - Labs CBC & Chem 7: 04/14/21 05:21 04/14/21 05:21 Labs: Abnormal Lab Results - Last 24 Hours (Table) 04/13/21 04/13/21 04/13/21 Range/Units 16:43 17:49 20:25 WBC (3.8-10.6) k/uL Neutrophils # (1.3-7.7) k/uL PT (9.0-12.0) sec INR (<1.2) Chloride (98-107) mmol/L Carbon Dioxide (22-30) mmol/L BUN (7-17) mg/dL Glucose (74-99) mg/dL POC Glucose (mg/dL) 355 H 317 H (75-99) mg/dL Lactate Dehydrogenase 648 H (313-618) U/L Total Protein (6.3-8.2) g/dL Albumin (3.5-5.0) g/dL 04/14/21 04/14/21 04/14/21 Range/Units 05:21 05:21 05:21 WBC 16.6 H (3.8-10.6) k/uL Neutrophils # 14.2 H (1.3-7.7) k/uL PT 37.7 H (9.0-12.0) sec INR 3.9 H (<1.2) Chloride 109 H (98-107) mmol/L Carbon Dioxide 20 L (22-30) mmol/L BUN 19 H (7-17) mg/dL Glucose 232 H (74-99) mg/dL POC Glucose (mg/dL) (75-99) mg/dL Lactate Dehydrogenase (313-618) U/L Total Protein 5.9 L (6.3-8.2) g/dL Albumin 3.2 L (3.5-5.0) g/dL 04/14/21 04/14/21 Range/Units 06:47 11:34 WBC (3.8-10.6) k/uL Neutrophils # (1.3-7.7) k/uL PT (9.0-12.0) sec INR (<1.2) Chloride (98-107) mmol/L Carbon Dioxide (22-30) mmol/L BUN (7-17) mg/dL Glucose (74-99) mg/dL POC Glucose (mg/dL) 230 H 163 H (75-99) mg/dL Lactate Dehydrogenase (313-618) U/L Total Protein (6.3-8.2) g/dL Albumin (3.5-5.0) g/dL Microbiology - Last 24 Hours (Table) 04/12/21 11:30 Gram Stain - Final Groin Wound Culture - Final 04/10/21 08:58 Blood Culture - Preliminary Blood No Growth after 96 hours 04/10/21 08:58 Blood Culture - Preliminary Blood No Growth after 96 hours 04/11/21 16:57 Blood Culture - Preliminary Blood No Growth after 48 hours Assessment and Plan Plan: Status post incision and drainage of groin abscess with history of hidradenitis. Patient appears to be improving from the cellulitis infection. Patient is being evaluated by pulmonology as currently, her most severe overall symptoms are with shortness of breath.Continue IV antibiotics based on ID recommendations. Await cultures.
[2021-04-14] MEDS ORDERED: FUROSEMIDE 10 MG/ML 4 ML VIAL IV STA (15:58)
[2021-04-14 16:42] LABS: Glucose,Whole Blood 367 mg/dL (75-99)
[2021-04-14] MEDS ORDERED: WARFARIN 0.5 MG TAB PO ONE (18:00)
--- NOTE | 2021-04-14 18:55 | PN ---
PROGRESS NOTE DATE OF SERVICE: 04/14/2021 REASON FOR FOLLOWUP: Right groin abscess. INTERVAL HISTORY: The patient is afebrile. Still complaining of shortness of breath. Denies having any chest pain, though. Minimal cough. No sputum. No abdominal pain. Groin pain has improved. PHYSICAL EXAMINATION: Blood pressure 135/73, pulse of 89, temperature of 98.6. She is 91% on 5 L nasal cannula. GENERAL DESCRIPTION: General description is a middle-aged female up in the bed in no distress. RESPIRATORY SYSTEM: Unlabored breathing. Decreased intensity of breath sounds. No wheeze. HEART: S1, S2. Regular rate and rhythm. ABDOMEN: Soft. No tenderness. LABS: Hemoglobin is 12.1, white count 16.6. D-dimer is 0.44, creatinine 0.71. DIAGNOSTIC IMPRESSION AND PLAN: Patient with right groin abscess, status post drainage. Cultures are currently pending. Patient to continue with Unasyn and vancomycin while monitoring clinical course closely. Continue with supportive care. MMODL / IJN: [id number] /
[2021-04-14 20:43] LABS: Glucose,Whole Blood 349 mg/dL (75-99)
[2021-04-15] MEDS: IBUPROFEN 400 MG TAB PO PRN ×4 (03:26→22:12)
[2021-04-15] MEDS: ALPRAZolam 0.25 MG TAB PO PRN ×2 (03:32→09:38)
[2021-04-15] MEDS: LEVOTHYROXINE 100 MCG TAB PO SCH (05:17)
[2021-04-15] MEDS: AMPICILLIN-SULBACTAM 3 GM in SODIUM CHLORIDE 0.9% 100 ML IVPB SCH ×4 (05:17→18:12)
[2021-04-15] MEDS: VANCOMYCIN 2,250 MG in SODIUM CHLORIDE 0.9% 500 ML 500 ML IVPB SCH ×2 (06:00→19:52)
[2021-04-15 06:44] LABS: INR 2.7 (<1.2); Prothrombin Time 26.1 sec (9.0-12.0)
[2021-04-15 06:47] LABS: Glucose,Whole Blood 320 mg/dL (75-99)
[2021-04-15] MEDS: glipiZIDE 10 MG TAB PO SCH ×2 (07:25→17:09)
[2021-04-15] MEDS: METOCLOPRAMIDE 5 MG TAB PO SCH ×2 (07:26→17:09)
[2021-04-15] MEDS: ACETAMINOPHEN TAB 325 MG TAB PO PRN ×2 (07:26→19:59)
[2021-04-15] MEDS: methylPREDNISolone SOD SUCCI 125 MG/2 ML VIAL IV SCH ×2 (07:26→15:17)
[2021-04-15] MEDS: INSULIN ASPART (NovoLOG) 100 UNIT/ML VIAL SQ SCH ×4 (07:27→22:02)
--- NOTE | 2021-04-15 07:54 | XR ---
EXAMINATION TYPE: XR chest 1V DATE OF EXAM: 04/15/2021 COMPARISON: 04/11/2021 INDICATION: Pneumonia TECHNIQUE: Single frontal view of the chest is obtained. FINDINGS: The heart size is normal. The pulmonary vasculature is indistinct. Diffuse increased lung markings are present bilaterally. This is nonspecific but progressive from the comparison. Consider atypical pneumonia IMPRESSION: 1. Diffuse increasing bilateral lung infiltrates. Correlate for atypical pneumonia.
[2021-04-15] MEDS: NON FORMULARY DRUG (Dapagliflozin Propanediol [Farxiga] 10 MG Tablet) PO SCH (08:22)
[2021-04-15] MEDS: SYMBICORT 160-4.5 MCG INHALER INHALATION SCH ×2 (09:07→21:33)
[2021-04-15] MEDS: IPRATROPIUM-ALBUTEROL 3 ML NEB INHALATION SCH ×4 (09:07→21:32)
[2021-04-15] MEDS: ZINC SULFATE 220 MG CAP PO SCH (09:36)
[2021-04-15] MEDS: hydroCHLOROthiazide 25 MG TAB PO SCH (09:36)
[2021-04-15] MEDS: TOPIRAMATE 25 MG TAB PO SCH ×2 (09:37→22:02)
[2021-04-15 11:27] LABS: Glucose,Whole Blood 290 mg/dL (75-99)
--- NOTE | 2021-04-15 11:46 | ECHOF ---
Referral Reason:RADHA, hx PE MEASUREMENTS -------- HEIGHT: 165.1 cm WEIGHT: 122.5 kg BP: RVIDd: 3.2 cm (< 3.3) IVSd: 1.6 cm (0.6 - 1.1) LVIDd: 3.2 cm (3.9 - 5.3) LVPWd: 1.7 cm (0.6 - 1.1) IVSs: 1.8 cm LVIDs: 2.3 cm LVPWs: 1.8 cm LAESV Index (A-L): 21.36 ml/m Ao Diam: 3.1 cm (2.0 - 3.7) AV Cusp: 1.8 cm (1.5 - 2.6) LA Diam: 3.6 cm (2.7 - 3.8) MV EXCURSION: 16.721 mm (> 18.000) MV EF SLOPE: 137 mm/s (70 - 150) EPSS: 0.9 cm MV E Tong: 1.14 m/s MV DecT: 182 ms MV A Tong: 1.02 m/s MV E/A Ratio: 1.12 RAP: 5.00 mmHg RVSP: 29.49 mmHg FINDINGS -------- This was a technically adequate study. The left ventricular size is normal. There is moderate concentric left ventricular hypertrophy. O verall left ventricular systolic function is normal with, an EF between 55 - 60 %. The diastolic fi lling pattern is normal for the age of the patient 13.99. The right ventricle is mildly enlarged. The left atrial size is normal. Normal LA size by volume 22+/-6 ml/m2. The right atrial size is normal. The aortic valve is trileaflet and appears structurally normal. The mitral valve is normal. There is trace mitral regurgitation. The tricuspid valve appears structurally normal. Mild tricuspid regurgitation present. Right vent ricular systolic pressure is normal at < 35 mmHg. There is no pulmonic regurgitation present. The aortic root size is normal. IVC Not well visulized. There is no pericardial effusion. CONCLUSIONS -------- 1. The left ventricular size is normal. 2. There is moderate concentric left ventricular hypertrophy. 3. Overall left ventricular systolic function is normal with, an EF between 55 - 60 %. 4. The diastolic filling pattern is normal for the age of the patient 13.99 5. The right ventricle is mildly enlarged. 6. There is trace mitral regurgitation. 7. Mild tricuspid regurgitation present. 8. There is no pericardial effusion. TALENT ACQUISITION ASSISTANT: Munira Wilder RDCS
[2021-04-15] MEDS: LORazepam 2 MG/ML INJ IV PRN ×2 (13:19→22:11)
[2021-04-15 13:30] LABS: IgG Subclass 3 30.9 mg/dL (11.0-85.0); IgG Subclass 4 5.6 mg/dL (3.0-175.0)
[2021-04-15 13:56] VITALS: BMI 44.9
[2021-04-15] MEDS ORDERED: LIDOCAINE 1% INJ 10MG/ML (20 ML MDV) ONE (14:37)
[2021-04-15] MEDS ORDERED: MIDAZOLAM 2 MG/2 ML VIAL ONE (14:37)
[2021-04-15] MEDS ORDERED: PROPOFOL 10 MG/ML 20 ML VIAL IV ONE (14:37)
[2021-04-15] MEDS ORDERED: KETOROLAC 15 MG/ML 1 ML VIAL ONE (14:37)
[2021-04-15] MEDS ORDERED: fentaNYL (PF) 50 MCG/ML 2 ML AMP ONE (14:37)
[2021-04-15] MEDS ORDERED: LACTATED RINGERS 1,000 ML IV ONE (14:52)
[2021-04-15] MEDS: FUROSEMIDE 10 MG/ML 2 ML VIAL IV SCH (15:17)
--- NOTE | 2021-04-15 15:26 | PN ---
PROGRESS NOTE This is a 30-year-old female. We gave her Lasix 40 yesterday for her breathing. She is 91% on BiPAP. Blood pressure 130s over 60s, temperature 96.8. She has extensive bilateral pneumonia. Discussed with the family yesterday her care. Sugars are in the mid 200s. INR is 2.7. White count is down to 16.6. One of her IgG 2 levels are low. Going to get a central line placed. Chest x-ray shows diffuse increased bilateral lung infiltrates, possible atypical pneumonia. Prognosis extremely guarded at this time. echocardiogram due to worsening shortness of breath, which showed some LVH, ejection fraction 55% to 60%, heart ventricles mildly enlarged. She has a congestive cough. We are going to give her cough syrup at this time. Lungs have scattered rhonchi and wheeze. Cardiovascular S1, S2. Hematology: Negative Homans. Discussed the case with Dr. Lund, Infectious Diseases, as well as Pulmonary, Dr. Oneill. She has a right groin abscess, status post drainage. Cultures are pending. She is on Unasyn and vancomycin. She has bilateral extensive pneumonia versus ARDS. Continue with Lasix IV. Prognosis is guarded. She is very sick at this point. MMODL / IJN: [id number] /
[2021-04-15] MEDS: BUTALB/APAP/CAFF 50-325-40MG TAB PO PRN (15:32)
--- NOTE | 2021-04-15 15:33 | P.PN ---
Subjective Progress Note Date: 04/15/21 Principal diagnosis: Acute hypoxic respiratory failure due to sepsis obesity hypoventilation syndrome and history of pulmonary embolism Bilateral pneumonia Likely sleep disorder breathing and sleep apnea to be evaluated on outpatient basis for sleep apnea Right groin abscess formation History of prior pulmonary embolism currently denies any chest pain or shortness of breath to that extent Morbid obesity and likely sleep disorder breathing and sleep apnea 10/13/2020, patient seen eval examined during the rounds levels reviewed medications reviewed, remains short of breath, FiO2 however increased to 15 L oxygen eventually mask, has been 7 L high flow, chest x-ray reviewed bilateral diffuse infiltrate suggestive of a atypical pneumonia and is scheduled for bronchoscopy later on today, patient however remains afebrile and hemodynamically stable, PT/INR is 26.1 and 2.7, patient is being planned for bronchoscopy later on today 10/12/2020, patient seen eval reexamined labs reviewed medications reviewed care plan discussed, patient remains short of breath with intermittent dry nonproductive cough oxygen is up to 3 L now, her heart over test came back negative, white cell count is up to 16,600 hemoglobin and hematocrit is 12 and 36 PT/INR is 37 3.9, BUN/creatinine normal sugars to 30 and 163, I have reviewed and discussed with the patient at length given that recurrent pustular infection is present we will evaluate for IgG deficiency syndrome, sometimes have been ordered we'll also discussed with infectious disease services 04/13/2021, patient seen eval reexamined still short of breath, ongoing intermittent dry nonproductive cough is present, patient has 2 L oxygen saturation is 94% however at room air desaturated to 88%, computed tomography scan of the chest reviewed bilateral basal pneumonia is present, with patchy infiltrate involving upper lobe as well her covert testing is negative, currently patient has been on IV Unasyn along with vancomycin we will add IV steroids as well in order sputum studies This is a pleasant 30-year-old female came into the hospital with right chronic infection and abscess formation, she has been admitted into the hospital through the emergency department, main symptoms were swelling and pain in the right leg and right groin also had discomfort in the armpits as well as, patient does have a history of hidradenitis, she takes Keflex for last 2 weeks, patient started having fever is low-grade at home also new abscess formation noted came into the hospital for further evaluation, Dr. Lambert from infectious disease is following as well, patient does have a significant history of the severe morbid obesity, anxiety disorder, recurrent pulmonary embolism type 2 diabetes mellitus and possible surgical services in the right labia [facility] patient does smoke about 1 pack per day, currently patient is on 2 L oxygen due to shortness of breath, on arrival she was noted to have white cell count 19,500, with a BUN/creatinine 13.3, right lower extremity ultrasound negative for DVT, ultrasound of the right groin revealed superficial abscess 3.31.614 cm in size, currently patient is on bronchodilator IV Unasyn, IV vancomycin, her oral hypoglycemic agent along with Coumadin, her chest x-ray done yesterday no acute active cardiopulmonary disease however small lung volumes has been noted Objective - Vital Signs Vital signs: Vital Signs Temp 96.8 F L 04/15/21 14:52 Pulse 68 04/15/21 14:52 Resp 18 04/15/21 14:52 BP 133/68 04/15/21 14:52 Pulse Ox 91 L 04/15/21 14:52 Intake & Output 04/14/21 04/15/21 04/15/21 18:59 06:59 18:59 Intake Total 240 100 Balance 240 100 Weight 122.47 kg Intake: IV 100 Oral 240 Other: Voiding Method Toilet Toilet # Voids 1 - Exam - Constitutional General appearance: disheveled, morbidly obese - EENT Eyes: PERRLA Ears: bilateral: normal - Neck Carotids: bilateral: upstroke normal - Respiratory Respiratory: bilateral: CTA, however few basal crackles cannot be excluded - Cardiovascular Heart sounds: normal: S1 Abnormal Heart Sounds: systolic murmur - Gastrointestinal General gastrointestinal: soft - Integumentary Right groin erythematous indurated inflammatory changes with brownish discharge - Neurologic Neurologic: CNII-XII intact - Musculoskeletal Musculoskeletal: generalized weakness - Psychiatric Psychiatric: appropriate affect, intact judgment & insight, however patient broke into tears - Labs CBC & Chem 7: 04/14/21 05:21 04/14/21 05:21 Labs: Abnormal Lab Results - Last 24 Hours (Table) 04/14/21 04/14/21 04/14/21 Range/Units 05:21 16:41 20:40 PT (9.0-12.0) sec INR (<1.2) POC Glucose (mg/dL) 367 H 349 H (75-99) mg/dL IgG2 148.0 L (169.0-640.0) mg/dL 04/15/21 04/15/21 04/15/21 Range/Units 05:12 06:46 11:26 PT 26.1 H (9.0-12.0) sec INR 2.7 H (<1.2) POC Glucose (mg/dL) 320 H 290 H (75-99) mg/dL IgG2 (169.0-640.0) mg/dL Microbiology - Last 24 Hours (Table) 04/10/21 08:58 Blood Culture - Preliminary Blood No Growth after 120 hours 04/10/21 08:58 Blood Culture - Preliminary Blood No Growth after 120 hours 04/11/21 16:57 Blood Culture - Preliminary Blood No Growth after 72 hours 04/12/21 11:30 Gram Stain - Final Groin Wound Culture - Final Assessment and Plan Assessment: Acute hypoxic respiratory failure due to sepsis Bilateral pneumonia likely bacterial obesity hypoventilation syndrome and history of pulmonary embolism Likely sleep disorder breathing and sleep apnea to be evaluated on outpatient basis for sleep apnea Right groin abscess formation and abscesses in axilla History of prior pulmonary embolism currently denies any chest pain or shortness of breath to that extent Morbid obesity and likely sleep disorder breathing and sleep apnea Plan: IV steroids IV antibiotics IgG and subtypes Continue anticoagulation as per plan Continue deep breathing exercises incentive spirometry Sputum studies, bronchoscopy later on today Sleep study as outpatient Time with Patient: Greater than 30
--- NOTE | 2021-04-15 15:36 | P.PCN ---
Date of Procedure: 04/15/21 Preoperative Diagnosis: Bilateral pneumonia Postoperative Diagnosis: As above Procedure(s) Performed: #1 bronchoscopy #2 bronchoalveolar large Anesthesia: MAC Surgeon: Blaine Oneill Indications for Procedure: Bilateral pneumonia hypoxia respiratory failure Operative Findings: As below Description of Procedure: Patient prepared and draped in a usual fashion fibrosis optic bronchoscope was passed through the mouth, as nasal passages are very narrow, the vocal cords were inspected with normal structure and function, tip of the scope was passed beyond the vocal cords and trachea and bronchial tree was diffusely erythematous, mucus plugs were present bilaterally which was suctioned and cleaned, fiberoptic bronchoscope was placed into right lower lobe subsegment DL was performed followed by BAL on the left side of note that in phlegm atrial changes are more prominent pronounced on the left side, patient tolerated procedure well no complication noted
--- NOTE | 2021-04-15 16:19 | CDI ---
Documentation Clarification Form Date: 04/15/2021 03:47:57 PM From: Holly Medina RN, CCDS Admit Date: 04/10/2021 10:37:00 AM Patient Name: Fazal Guzmán Visit Number: [id number] Discharge Date: ATTENTION: The Clinical Documentation Specialists (CDI) and [facility] Coding Staff appreciate your assistance in clarifying documentation. Please respond to the clarification below the line at the bottom and electronically sign. The CDI & [facility] Coding staff will review the response and follow-up if needed. Please note: Queries are made part of the Legal Health Record. If you have any questions, please contact the author of this message via ITS. Dr. Rodrick Rose The patient presented with possible leg infection, low grade fever at home. Additional clarification regarding the etiology/cause of the clinical indicators is requested. 04/11 ID Consult: Patient presented to hospital with sepsis in this, did have fever elevated white count and source is right groin abscess as seen on the ultrasound and likely from gram-positive skin ian such as MRSA to the likely pathogen this likely gram-negative infection History/Risk Factors: Hidrandenitis, Diabetes mellitus, Pulmonary Embolus, Current every day smoker Clinical Indicators: 30-year-old female with right leg pain, swelling, draining in her groin and bilateral armpits. Skin exam: jacob, (Induration, with multiple areas of previously draining abscesses in both axilla. Groin with previously drained abscesses, induration and some minimal cellulitis into the right buttock with induration. 04/10 WBC: 19.5 Neutrophils 17.1 04/10 Lactic acid: 1.7; COVID-19 Negative 04/10 Blood cultures: No growth after 120 hours 04/10 Vital signs: 128 18 97.5 99 % RA 04/11 Vital signs: 130/68 124 102.2 86 % RA 93 % 2/L Temp max (04/11@15:07) 103.1 Treatment: Vancomycin 1,000 MG IVPB Once, THEN 2,000 mg IVPB Q 12 HRS (PTD) Unasyn 3 GM IVPB Q 6 HRS 04/12 Incision and drainage of abscess .9NS 1,000 ML/HR X1 In your professional opinion, please clarify if these findings signify one of the following conditions: [ ] Sepsis POA [ ] Sepsis ruled out [ ] Other, please specify [ ] Unable to determine SIRS Criteria: 2 or more of the following may indicate SIRS -Temperature < 96.8F (36C) or > 101.0F (38.3C) -Heart Rate > 90 bpm -Respiratory Rate > 20 breaths/min or PaCO2 < 32 mmHg -White Blood Cell Count > 12,000 or < 4,000 cells/mm3 or > 10% bands (Template Last Reviewed: September 2020) MTDD
[2021-04-15 16:52] LABS: Glucose,Whole Blood 257 mg/dL (75-99)
[2021-04-15] MEDS ORDERED: WARFARIN 5 MG TAB PO ONE (18:00)
[2021-04-15 20:44] LABS: Glucose,Whole Blood 450 mg/dL (75-99)
[2021-04-16] MEDS: AZITHROMYCIN 500 MG in SODIUM CHLORIDE 0.9% 250 ML IVPB SCH ×2 (00:02→21:07)
[2021-04-16] MEDS: methylPREDNISolone SOD SUCCI 125 MG/2 ML VIAL IV SCH ×4 (00:32→23:29)
[2021-04-16] MEDS: AMPICILLIN-SULBACTAM 3 GM in SODIUM CHLORIDE 0.9% 100 ML IVPB SCH ×5 (01:10→23:29)
[2021-04-16] MEDS ORDERED: VANCOMYCIN TROUGH DUE 1 EACH MISC MISCELLANE ONE (05:00)
--- NOTE | 2021-04-16 05:25 | PN ---
PROGRESS NOTE DATE OF SERVICE: 04/15/2021 REASON FOR FOLLOWUP: Right groin abscess. INTERVAL HISTORY: Patient was seen on rounds this morning. The patient has been afebrile. She has been breathing slightly comfortably. Denies any chest pain. Did have occasional cough. Not bringing up any sputum. No vomiting or diarrhea. PHYSICAL EXAMINATION: Blood pressure 132/75 with a pulse of 71, temperature 98. She is 92% on room air. General description is a middle-aged female up in the bed in no distress. Respiratory system: Unlabored breathing, coarse breath sounds bilaterally. No wheeze. Heart S1, S2. Regular rate and rhythm. Abdomen soft, no tenderness. LABS: No new labs have been obtained today. Blood cultures remain negative. culture negative as well. DIAGNOSTIC IMPRESSION AND PLAN: 1. Patient admitted to the hospital with right groin abscess status post drainage. Culture has been negative so far. Patient covered with Unasyn to continue. 2. Patient now with worsening of her respiratory status status post bronchoscopy. Those cultures will be followed and antibiotic adjusted if needed. Clinically no need for vancomycin and should be discontinued. MMODL / IJN: [id number] /
[2021-04-16] MEDS: LEVOTHYROXINE 100 MCG TAB PO SCH (05:37)
[2021-04-16 05:40] LABS: INR 2.4 (<1.2); Prothrombin Time 22.9 sec (9.0-12.0)
[2021-04-16] MEDS: IBUPROFEN 400 MG TAB PO PRN ×3 (05:41→17:26)
[2021-04-16 06:37] LABS: ALT 27 U/L (4-34); AST 21 U/L (14-36); African American GFR (CKD) >90 (>60 ml/min/1.73 sqM); Albumin 3.5 g/dL (3.5-5.0); Albumin/Globulin Ratio 1.3; Alkaline Phosphatase 101 U/L (38-126); Anion Gap 10 mmol/L; Blood Urea Nitrogen 23 mg/dL (7-17); Calcium 9.2 mg/dL (8.4-10.2); Carbon Dioxide 21 mmol/L (22-30); Chloride 106 mmol/L (98-107); Globulin 2.8 g/dL; Glucose 318 mg/dL (74-99); LDH 755 U/L (313-618); Non-African American GFR(CKD) >90 (>60 ml/min/1.73 sqM); Potassium 4.4 mmol/L (3.5-5.1); Sodium 137 mmol/L (137-145); Total Bilirubin 0.4 mg/dL (0.2-1.3); Total Protein 6.3 g/dL (6.3-8.2)
[2021-04-16 06:55] LABS: Glucose,Whole Blood 327 mg/dL (75-99)
[2021-04-16] MEDS: glipiZIDE 10 MG TAB PO SCH ×2 (07:56→18:25)
[2021-04-16] MEDS: INSULIN ASPART (NovoLOG) 100 UNIT/ML VIAL SQ SCH ×4 (07:56→21:11)
[2021-04-16] MEDS: METOCLOPRAMIDE 5 MG TAB PO SCH ×2 (07:56→18:27)
[2021-04-16] MEDS: LORazepam 2 MG/ML INJ IV PRN ×2 (07:58→22:03)
[2021-04-16] MEDS: IPRATROPIUM-ALBUTEROL 3 ML NEB INHALATION SCH ×4 (08:06→19:42)
[2021-04-16] MEDS: SYMBICORT 160-4.5 MCG INHALER INHALATION SCH ×2 (08:06→19:42)
[2021-04-16 09:14] LABS: HCT 39.2 % (37.2-46.3); HGB 12.6 g/dL (12.0-15.0); MCH 29.3 pg (27.0-32.0); MCHC 32.1 g/dL (32.0-37.0); MCV 91.2 fL (80.0-97.0); Mean Platelet Volume 10.7 fL (9.5-12.2); Platelet Count 324 X 10*3/uL (140-440); RDW 13.9 % (11.5-14.5); WBC 16.92 X 10*3/uL (4.50-10.00)
[2021-04-16 10:34] LABS: Basophils # (M) 0 X 10*3/uL (0.00-0.10); Eosinophils # (M) 0 X 10*3/uL (0.04-0.35); Lymphocytes # (M) 0.68 X 10*3/uL (0.90-5.00); Monocytes # (M) 0.68 X 10*3/uL (0.20-1.00); Myelocytes % 2 % (0-0); Neutrophils # (M) 15.23 X 10*3/uL (2.00-8.90); Neutrophils % (M) 90 %
[2021-04-16] MEDS: ZINC SULFATE 220 MG CAP PO SCH (10:48)
[2021-04-16] MEDS: TOPIRAMATE 25 MG TAB PO SCH ×2 (10:48→21:08)
[2021-04-16] MEDS: hydroCHLOROthiazide 25 MG TAB PO SCH (10:48)
[2021-04-16] MEDS: FUROSEMIDE 10 MG/ML 2 ML VIAL IV SCH (10:49)
[2021-04-16] MEDS: NON FORMULARY DRUG (Dapagliflozin Propanediol [Farxiga] 10 MG Tablet) PO SCH (11:10)
[2021-04-16 11:28] LABS: Glucose,Whole Blood 353 mg/dL (75-99)
[2021-04-16] MEDS: ALPRAZolam 0.25 MG TAB PO PRN ×2 (12:12→17:26)
[2021-04-16] MEDS ORDERED: INSULIN ASPART (NovoLOG) 100 UNIT/ML VIAL SQ ONE (12:30)
[2021-04-16 16:53] LABS: Glucose,Whole Blood 351 mg/dL (75-99)
[2021-04-16] MEDS ORDERED: WARFARIN 5 MG TAB PO ONE (18:00)
[2021-04-16 20:15] LABS: Glucose,Whole Blood 379 mg/dL (75-99)
--- NOTE | 2021-04-17 00:27 | PN ---
PROGRESS NOTE DATE OF SERVICE: 04/16/2021 REASON FOR FOLLOWUP: Right gluteal abscess, cellulitis. INTERVAL HISTORY: The patient is afebrile. The patient is breathing more comfortably. The patient denies having any chest pain. Occasional cough. No abdominal pain or any worsening pain to the right wound area. PHYSICAL EXAMINATION: Blood pressure 121/69, pulse of 63, temperature 98.2. She is 94% on room air. GENERAL DESCRIPTION: General description is a middle-aged female lying in bed in no distress. RESPIRATORY SYSTEM: Unlabored breathing. Decreased intensity of breath sounds. No wheeze. HEART: S1, S2. Regular rate and rhythm. ABDOMEN: Soft. No tenderness. LABS: Wound culture so far negative. DIAGNOSTIC IMPRESSION AND PLAN: Patient with right abscess. Patient at this time is covered with Unasyn. Will transient to oral antibiotic on discharge. Continue supportive care. MMODL / IJN: [id number] /
[2021-04-17] MEDS: LORazepam 2 MG/ML INJ IV PRN ×2 (03:35→20:56)
[2021-04-17] MEDS: IBUPROFEN 400 MG TAB PO PRN ×4 (03:41→23:50)
--- NOTE | 2021-04-17 05:33 | PN ---
PROGRESS NOTE 30-year-old white female who is breathing a lot better today and every day she is getting better. She is 94% on room air. Blood pressure 120s over 60s. Temp 98.2. Respiratory 18 to 22. Cardiovascular S1, S2. Lungs scattered rhonchi and wheeze. Hematology negative Homans. Remains on Zosyn and vancomycin. ASSESSMENT: 1. Right knee abscess status post drainage. Continue with Unasyn. 2. Status post bronchoscopy with aspiration plug removed. She is breathing better today. Cultures to be continued and we will hold off on vancomycin at this point. Continue current treatment. MMODL / IJN: [id number] /
[2021-04-17] MEDS: AMPICILLIN-SULBACTAM 3 GM in SODIUM CHLORIDE 0.9% 100 ML IVPB SCH ×3 (05:38→18:06)
[2021-04-17] MEDS: LEVOTHYROXINE 100 MCG TAB PO SCH (05:38)
[2021-04-17 06:41] LABS: INR 1.9 (<1.2); Prothrombin Time 18.5 sec (9.0-12.0)
[2021-04-17 06:52] LABS: Glucose,Whole Blood 354 mg/dL (75-99)
[2021-04-17] MEDS: FUROSEMIDE 10 MG/ML 2 ML VIAL IV SCH (08:10)
[2021-04-17] MEDS: TOPIRAMATE 25 MG TAB PO SCH ×2 (08:10→21:59)
[2021-04-17] MEDS: hydroCHLOROthiazide 25 MG TAB PO SCH (08:10)
[2021-04-17] MEDS: METOCLOPRAMIDE 5 MG TAB PO SCH ×2 (08:10→18:03)
[2021-04-17] MEDS: glipiZIDE 10 MG TAB PO SCH ×2 (08:10→18:02)
[2021-04-17] MEDS: ZINC SULFATE 220 MG CAP PO SCH (08:10)
[2021-04-17] MEDS: methylPREDNISolone SOD SUCCI 125 MG/2 ML VIAL IV SCH (08:11)
[2021-04-17] MEDS: INSULIN ASPART (NovoLOG) 100 UNIT/ML VIAL SQ SCH ×4 (08:17→20:48)
[2021-04-17] MEDS: NON FORMULARY DRUG (Dapagliflozin Propanediol [Farxiga] 10 MG Tablet) PO SCH (08:25)
[2021-04-17] MEDS: SYMBICORT 160-4.5 MCG INHALER INHALATION SCH ×2 (08:58→19:22)
[2021-04-17] MEDS: IPRATROPIUM-ALBUTEROL 3 ML NEB INHALATION SCH ×4 (08:58→19:21)
[2021-04-17 11:22] LABS: Glucose,Whole Blood 394 mg/dL (75-99)
--- NOTE | 2021-04-17 11:43 | P.PN ---
Subjective Progress Note Date: 04/17/21 Principal diagnosis: Acute hypoxic respiratory failure due to sepsis obesity hypoventilation syndrome and history of pulmonary embolism Bilateral pneumonia Likely sleep disorder breathing and sleep apnea to be evaluated on outpatient basis for sleep apnea Right groin abscess formation History of prior pulmonary embolism currently denies any chest pain or shortness of breath to that extent Morbid obesity and likely sleep disorder breathing and sleep apnea 04/17/2021, patient seen eval examined during the rounds labs reviewed medications reviewed care plan discussed, patient oxygen requirement continued to improve now on 3 L oxygen cough congestion shortness of breath improved labs reviewed, remains on high-dose steroids breathing treatments as well as broad-spectrum antibiotics including Zithromax respiratory culture however are still pending, patient did not use the BiPAP machine, 04/15/2021, patient seen eval examined during the rounds levels reviewed medicat ions reviewed, remains short of breath, FiO2 however increased to 15 L oxygen eventually mask, has been 7 L high flow, chest x-ray reviewed bilateral diffuse infiltrate suggestive of a atypical pneumonia and is scheduled for bronchoscopy later on today, patient however remains afebrile and hemodynamically stable, PT/INR is 26.1 and 2.7, patient is being planned for bronchoscopy later on today 04/14/2021, patient seen eval reexamined labs reviewed medications reviewed care plan discussed, patient remains short of breath with intermittent dry nonproductive cough oxygen is up to 3 L now, her heart over test came back negative, white cell count is up to 16,600 hemoglobin and hematocrit is 12 and 36 PT/INR is 37 3.9, BUN/creatinine normal sugars to 30 and 163, I have reviewed and discussed with the patient at length given that recurrent pustular infection is present we will evaluate for IgG deficiency syndrome, sometimes have been ordered we'll also discussed with infectious disease services 04/13/2021, patient seen eval reexamined still short of breath, ongoing intermittent dry nonproductive cough is present, patient has 2 L oxygen saturation is 94% however at room air desaturated to 88%, computed tomography scan of the chest reviewed bilateral basal pneumonia is present, with patchy infiltrate involving upper lobe as well her covert testing is negative, currently patient has been on IV Unasyn along with vancomycin we will add IV steroids as well in order sputum studies This is a pleasant 30-year-old female came into the hospital with right chronic infection and abscess formation, she has been admitted into the hospital through the emergency department, main symptoms were swelling and pain in the right leg and right groin also had discomfort in the armpits as well as, patient does have a history of hidradenitis, she takes Keflex for last 2 weeks, patient started having fever is low-grade at home also new abscess formation noted came into the hospital for further evaluation, Dr. Lambert from infectious disease is following as well, patient does have a significant history of the severe morbid obesity, anxiety disorder, recurrent pulmonary embolism type 2 diabetes mellitus and possible surgical services in the right labia [facility] patient does smoke about 1 pack per day, currently patient is on 2 L oxygen due to shortness of breath, on arrival she was noted to have white cell count 19,500, with a BUN/creatinine 13.3, right lower extremity ultrasound negative for DVT, ultrasound of the right groin revealed superficial abscess 3.31.614 cm in size, currently miguel ángel pérez is on bronchodilator IV Unasyn, IV vancomycin, her oral hypoglycemic agent along with Coumadin, her chest x-ray done yesterday no acute active cardiopulmonary disease however small lung volumes has been noted Objective - Vital Signs Vital signs: Vital Signs Temp 97.5 F L 04/17/21 07:06 Pulse 58 L 04/17/21 09:12 Resp 18 04/17/21 09:12 BP 131/79 04/17/21 07:06 Pulse Ox 95 04/17/21 10:07 Intake & Output 04/16/21 04/17/21 04/17/21 18:59 06:59 18:59 Intake Total 600 Balance 600 Intake: Oral 600 Other: Voiding Method Toilet Toilet Toilet Bedside Commode Bedside Commode # Voids 2 2 - Exam - Constitutional General appearance: disheveled, morbidly obese - EENT Eyes: PERRLA Ears: bilateral: normal - Neck Carotids: bilateral: upstroke normal - Respiratory Respiratory: bilateral: CTA, however few basal crackles cannot be excluded - Cardiovascular Heart sounds: normal: S1 Abnormal Heart Sounds: systolic murmur - Gastrointestinal General gastrointestinal: soft - Integumentary Right groin erythematous indurated inflammatory changes with brownish discharge - Neurologic Neurologic: CNII-XII intact - Musculoskeletal Musculoskeletal: generalized weakness - Psychiatric Psychiatric: appropriate affect, intact judgment & insight, however patient broke into tears - Labs CBC & Chem 7: 04/16/21 04:35 04/16/21 04:35 Labs: Abnormal Lab Results - Last 24 Hours (Table) 04/16/21 04/16/21 04/17/21 Range/Units 16:51 20:12 05:17 PT 18.5 H (9.0-12.0) sec INR 1.9 H (<1.2) POC Glucose (mg/dL) 351 H 379 H (75-99) mg/dL 04/17/21 04/17/21 Range/Units 06:51 11:20 PT (9.0-12.0) sec INR (<1.2) POC Glucose (mg/dL) 354 H 394 H (75-99) mg/dL Microbiology - Last 24 Hours (Table) 04/12/21 11:30 Anaerobic Culture - Preliminary Groin Anaerobic Gm Negative Bacilli Anaerobic Gram Positive Cocci Anaerobic Gm Negative Bacilli#2 04/11/21 16:57 Blood Culture - Preliminary Blood No Growth after 120 hours 04/10/21 08:58 Blood Culture - Final Blood No Growth after 144 hours 04/10/21 08:58 Blood Culture - Final Blood No Growth after 144 hours Assessment and Plan Assessment: Acute hypoxic respiratory failure due to sepsis Bilateral pneumonia likely bacterial obesity hypoventilation syndrome and history of pulmonary embolism Likely sleep disorder breathing and sleep apnea to be evaluated on outpatient basis for sleep apnea Right groin abscess formation and abscesses in axilla History of prior pulmonary embolism currently denies any chest pain or shortness of breath to that extent Morbid obesity and likely sleep disorder breathing and sleep apnea Plan: IV steroids IV antibiotics IgG and subtypes results are pending Continue anticoagulation as per plan Continue deep breathing exercises incentive spirometry BAL results pending Increase activity as tolerated Continue titrated oxygen down as tolerated Sleep study as outpatient Time with Patient: Greater than 30
[2021-04-17] MEDS ORDERED: INSULIN ASPART (NovoLOG) 100 UNIT/ML VIAL SQ ONE ×2 (12:30→18:30)
[2021-04-17] MEDS ORDERED: methylPREDNISolone SOD SUCCI 40 MG/ML 1 ML VIAL IV SCH (16:00)
[2021-04-17 17:55] LABS: Glucose,Whole Blood 576 mg/dL (75-99)
--- NOTE | 2021-04-17 17:57 | PN ---
PROGRESS NOTE DATE OF SERVICE: 04/17/2021 REASON FOR FOLLOWUP: 1. Right labial abscess. 2. Possible pneumonia. INTERVAL HISTORY: The patient is afebrile. The patient is breathing slightly comfortably. The patient denies having any chest pain. Cough has decreased in intensity. No vomiting. No abdominal pain or any worsening pain to the right labia/groin area. PHYSICAL EXAMINATION: Blood pressure 131/72 with a pulse of 76, temperature 98. She is 94% on 2 L nasal cannula. GENERAL DESCRIPTION: General description is a middle-aged female lying in bed in no distress. RESPIRATORY SYSTEM: Unlabored breathing. Decreased intensity of breath sounds. No wheeze. HEART: S1, S2. Regular rate and rhythm. ABDOMEN: Soft. No tenderness. LABS: INR is 1.9. Groin wound showing mostly anaerobes, Gram-negative and Gram-positive. Bronch cultures are currently pending. DIAGNOSTIC IMPRESSION AND PLAN: 1. Patient with right groin/labial abscess, status post drainage. Culture predominantly with Gram-negative. Patient is covered with Unasyn; to continue. 2. Patient with possible pneumonia, status post bronchoscopy. Those cultures will be followed and antibiotic adjusted if needed. MMODL / IJN: [id number] /
[2021-04-17] MEDS ORDERED: WARFARIN 5 MG TAB PO ONE (18:00)
[2021-04-17] MEDS: NYSTATIN 100,000 UNIT/ML SUSP 500,000 UNIT/5 ML CUP PO SCH ×2 (18:02→22:00)
[2021-04-17] MEDS: ALPRAZolam 0.25 MG TAB PO PRN (18:02)
[2021-04-17 20:09] LABS: Glucose,Whole Blood 508 mg/dL (75-99)
[2021-04-17] MEDS: AZITHROMYCIN 500 MG in SODIUM CHLORIDE 0.9% 250 ML IVPB SCH (20:49)
[2021-04-18] MEDS: AMPICILLIN-SULBACTAM 3 GM in SODIUM CHLORIDE 0.9% 100 ML IVPB SCH ×4 (01:30→17:05)
[2021-04-18] MEDS: ALPRAZolam 0.25 MG TAB PO PRN ×2 (02:09→18:15)
[2021-04-18] MEDS: LEVOTHYROXINE 100 MCG TAB PO SCH (06:23)
[2021-04-18 06:47] LABS: Glucose,Whole Blood 226 mg/dL (75-99)
[2021-04-18] MEDS: SYMBICORT 160-4.5 MCG INHALER INHALATION SCH ×2 (07:59→20:03)
[2021-04-18] MEDS: IPRATROPIUM-ALBUTEROL 3 ML NEB INHALATION SCH ×4 (07:59→20:03)
[2021-04-18] MEDS: INSULIN ASPART (NovoLOG) 100 UNIT/ML VIAL SQ SCH ×4 (08:20→21:14)
[2021-04-18] MEDS: hydroCHLOROthiazide 25 MG TAB PO SCH (08:21)
[2021-04-18] MEDS: ZINC SULFATE 220 MG CAP PO SCH (08:21)
[2021-04-18] MEDS: TOPIRAMATE 25 MG TAB PO SCH ×2 (08:21→21:15)
[2021-04-18] MEDS: METOCLOPRAMIDE 5 MG TAB PO SCH ×2 (08:21→17:02)
[2021-04-18] MEDS: NYSTATIN 100,000 UNIT/ML SUSP 500,000 UNIT/5 ML CUP PO SCH ×4 (08:22→21:15)
[2021-04-18] MEDS: glipiZIDE 10 MG TAB PO SCH ×2 (08:22→17:05)
[2021-04-18] MEDS: FUROSEMIDE 10 MG/ML 2 ML VIAL IV SCH (08:22)
[2021-04-18] MEDS: NON FORMULARY DRUG (Dapagliflozin Propanediol [Farxiga] 10 MG Tablet) PO SCH (08:22)
[2021-04-18] MEDS: predniSONE 20 MG TAB PO SCH (08:22)
[2021-04-18] MEDS: IBUPROFEN 400 MG TAB PO PRN ×2 (08:30→17:04)
[2021-04-18 11:32] LABS: Glucose,Whole Blood 169 mg/dL (75-99)
--- NOTE | 2021-04-18 11:44 | PN ---
PROGRESS NOTE HISTORY: A 30-year-old female who has improved bilateral pneumonia and pelvic cellulitis abscess type blood infection. She is being weaned off her steroids due to severely high blood sugars. We had to take off her IV Solu-Medrol. Continue broad-spectrum Zosyn, albuterol, Aricept for headaches. PHYSICAL EXAM: Cardiovascular S1, S2. She is down to 2 L nasal cannula, saturating mid 90s. Sitting up in bed talking to her boyfriend. Lungs scattered rhonchi and wheeze. Hematology negative Homans. Psych fair mood and affect. PLAN: Please see further orders. MMODL / IJN: [id number] /
[2021-04-18 12:06] LABS: INR 1.9 (<1.2); Prothrombin Time 18.5 sec (9.0-12.0)
--- NOTE | 2021-04-18 16:30 | PN ---
PROGRESS NOTE DATE OF SERVICE: 04/18/2021 REASON FOR FOLLOWUP: Right groin/labial abscess cellulitis and question of pneumonia. INTERVAL HISTORY: Patient is afebrile. The patient is feeling better. She is breathing more comfortably, down to 1 L nasal cannula. Denies having any chest pain. Did have some cough, not bringing any sputum. No abdominal pain or pain to the right groin area. PHYSICAL EXAMINATION: Blood pressure 125/70 with a pulse of 80, temperature 98. She is 93% on 2 L nasal cannula. General description is a middle-aged female up in the chair in no distress. Respiratory system unlabored breathing, decreased intensity of breath sounds. No wheeze. Heart S1, S2. Regular rate and rhythm. Abdomen soft, no tenderness. LABS: INR 1.9. Local culture from the groin is positive for anaerobes. Bronch culture so far negative. DIAGNOSTIC IMPRESSION AND PLAN: Patient with right labial abscess cellulitis status post drainage, also with concern for possible pneumonia status post bronchoscopy. Patient is covered with Unasyn to continue for now. Monitor clinical course closely. Continue supportive care. MMODL / IJN: [id number] /
[2021-04-18 16:37] LABS: Glucose,Whole Blood 396 mg/dL (75-99)
[2021-04-18] MEDS ORDERED: WARFARIN 3 MG TAB PO ONE (18:00)
[2021-04-18 20:36] LABS: Glucose,Whole Blood 398 mg/dL (75-99)
[2021-04-18] MEDS: AZITHROMYCIN 500 MG in SODIUM CHLORIDE 0.9% 250 ML IVPB SCH (21:13)
[2021-04-19] MEDS: AMPICILLIN-SULBACTAM 3 GM in SODIUM CHLORIDE 0.9% 100 ML IVPB SCH ×5 (01:03→23:20)
[2021-04-19] MEDS: IBUPROFEN 400 MG TAB PO PRN ×2 (05:20→17:47)
[2021-04-19] MEDS: LEVOTHYROXINE 100 MCG TAB PO SCH (05:20)
[2021-04-19 05:57] LABS: Prothrombin Time 19.3 sec (9.0-12.0)
[2021-04-19 06:50] LABS: Glucose,Whole Blood 213 mg/dL (75-99)
[2021-04-19] MEDS: NYSTATIN 100,000 UNIT/ML SUSP 500,000 UNIT/5 ML CUP PO SCH ×4 (08:00→20:48)
[2021-04-19] MEDS: FUROSEMIDE 10 MG/ML 2 ML VIAL IV SCH (08:00)
[2021-04-19] MEDS: hydroCHLOROthiazide 25 MG TAB PO SCH (08:01)
[2021-04-19] MEDS: ZINC SULFATE 220 MG CAP PO SCH (08:01)
[2021-04-19] MEDS: predniSONE 20 MG TAB PO SCH (08:01)
[2021-04-19] MEDS: INSULIN ASPART (NovoLOG) 100 UNIT/ML VIAL SQ SCH ×4 (08:01→20:47)
[2021-04-19] MEDS: TOPIRAMATE 25 MG TAB PO SCH ×2 (08:01→20:47)
[2021-04-19] MEDS: NON FORMULARY DRUG (Dapagliflozin Propanediol [Farxiga] 10 MG Tablet) PO SCH (08:01)
[2021-04-19] MEDS: METOCLOPRAMIDE 5 MG TAB PO SCH ×2 (08:01→17:47)
[2021-04-19] MEDS: glipiZIDE 10 MG TAB PO SCH ×2 (08:01→17:47)
[2021-04-19] MEDS: IPRATROPIUM-ALBUTEROL 3 ML NEB INHALATION SCH ×4 (08:34→20:37)
[2021-04-19] MEDS: SYMBICORT 160-4.5 MCG INHALER INHALATION SCH ×2 (08:34→20:37)
[2021-04-19 11:20] LABS: Glucose,Whole Blood 278 mg/dL (75-99)
[2021-04-19] MEDS: ALPRAZolam 0.25 MG TAB PO PRN (12:52)
[2021-04-19 16:20] LABS: Glucose,Whole Blood 452 mg/dL (75-99)
[2021-04-19] MEDS ORDERED: WARFARIN 3 MG TAB PO ONE (18:00)
[2021-04-19 19:52] LABS: Hemoglobin A1C 8.3 % (4.0-6.0)
[2021-04-19 20:37] LABS: Glucose,Whole Blood 320 mg/dL (75-99)
[2021-04-19] MEDS: AZITHROMYCIN 500 MG in SODIUM CHLORIDE 0.9% 250 ML IVPB SCH (20:46)
[2021-04-19] MEDS: LORazepam 2 MG/ML INJ IV PRN (21:03)
--- NOTE | 2021-04-19 23:09 | PN ---
PROGRESS NOTE DATE OF SERVICE: April 19, 2021. REASON FOR FOLLOW UP: Right groin abscess and cellulitis. INTERVAL HISTORY: Patient is afebrile. The patient is breathing comfortably. Denies having any chest pain, shortness of breath. Occasional cough. No vomiting. No abdominal pain. Pain to the groin area has improved. No diarrhea. PHYSICAL EXAMINATION: Blood pressure 101/54, pulse of 73, temperature 98.9. She is currently 99% on 5 L nasal cannula. General description is a middle-aged female up in the bed in no distress. Respiratory system: Unlabored breathing, decreased intensity of breath sounds. No wheeze. Heart S1, S2. Regular rate and rhythm. Abdomen soft, no tenderness. LABS: Bronch culture has been negative. Right groin culture has been mostly anaerobes, gram- negative bacilli. DIAGNOSTIC IMPRESSION AND PLAN: 1. Patient with right groin/labial abscess status post drainage. Culture with predominantly gram negative anaerobes. Patient is covered with Unasyn and transition to oral Augmentin on discharge. 2. Question of pneumonia. So far culture has been negative. No need for any specific therapy for underlying pulmonary condition. MMODL / IJN: [id number] /
[2021-04-20] MEDS: AMPICILLIN-SULBACTAM 3 GM in SODIUM CHLORIDE 0.9% 100 ML IVPB SCH ×2 (05:25→11:54)
[2021-04-20] MEDS: LEVOTHYROXINE 100 MCG TAB PO SCH (05:27)
[2021-04-20 07:02] LABS: INR 1.8 (<1.2); Prothrombin Time 17.5 sec (9.0-12.0)
[2021-04-20] MEDS: SYMBICORT 160-4.5 MCG INHALER INHALATION SCH (07:25)
[2021-04-20] MEDS: IPRATROPIUM-ALBUTEROL 3 ML NEB INHALATION SCH ×2 (07:25→11:44)
[2021-04-20] MEDS: NON FORMULARY DRUG (Dapagliflozin Propanediol [Farxiga] 10 MG Tablet) PO SCH (07:35)
[2021-04-20 07:40] LABS: Glucose,Whole Blood 162 mg/dL (75-99)
[2021-04-20] MEDS: NYSTATIN 100,000 UNIT/ML SUSP 500,000 UNIT/5 ML CUP PO SCH ×2 (07:45→11:53)
[2021-04-20] MEDS: INSULIN ASPART (NovoLOG) 100 UNIT/ML VIAL SQ SCH ×2 (07:45→11:54)
[2021-04-20] MEDS: ZINC SULFATE 220 MG CAP PO SCH (07:45)
[2021-04-20] MEDS: METOCLOPRAMIDE 5 MG TAB PO SCH (07:45)
[2021-04-20] MEDS: FUROSEMIDE 10 MG/ML 2 ML VIAL IV SCH (07:45)
[2021-04-20] MEDS: TOPIRAMATE 25 MG TAB PO SCH (07:45)
[2021-04-20] MEDS: IBUPROFEN 400 MG TAB PO PRN (07:45)
[2021-04-20] MEDS: glipiZIDE 10 MG TAB PO SCH (07:46)
[2021-04-20] MEDS: ALPRAZolam 0.25 MG TAB PO PRN (07:46)
[2021-04-20] MEDS: predniSONE 20 MG TAB PO SCH (07:46)
[2021-04-20] MEDS: hydroCHLOROthiazide 25 MG TAB PO SCH (07:46)
[2021-04-20 07:56] VITALS: BP 123/66; PULSE 65; RESP 18; TEMP 97.6
--- NOTE | 2021-04-20 08:26 | CDI ---
Documentation Clarification Form Date: 04/15/2021 03:47:00 PM From: Holly Medina RN, CCDS Admit Date: 04/10/2021 10:37:00 AM Patient Name: Fazal Guzmán Visit Number: [id number] Discharge Date: ATTENTION: The Clinical Documentation Specialists (CDI) and [facility] Coding Staff appreciate your assistance in clarifying documentation. Please respond to the clarification below the line at the bottom and electronically sign. The CDI & [facility] Coding staff will review the response and follow-up if needed. Please note: Queries are made part of the Legal Health Record. If you have any questions, please contact the author of this message via ITS. Dr. Rodrick Rose The patient presented with possible leg infection, low grade fever at home. Clinical indicators. Additional clarification regarding the etiology/cause of the clinical indicators is requested. 04/11 ID Consult: Patient presented to hospital with sepsis in this, did have fever elevated white count and source is right groin abscess as seen on the ultrasound and likely from gram-positive skin ian such as MRSA to the likely pathogen this likely gram-negative infection History/Risk Factors: Hidrandenitis, Diabetes mellitus, Pulmonary Embolus , Current everyday smoker Clinical Indicators: 30-year-old female with right leg pain, swelling, draining in her groin and bilateral armpits. Skin exam: jacob, (Induration, with multiple areas of previously draining abscesses in both axilla. Groin with previously drained abscesses, induration and some minimal cellulitis into the right buttock with induration. 04/10 WBC: 19.5 Neutrophils 17.1 04/10 Lactic acid: 1.7; COVID-19 Negative 04/10 Blood cultures: No growth after 120 hours 04/10 Vital signs: 128 18 97.5 99 % RA 04/11 Vital signs: 130/68 124 102.2 86 % RA 93 % 2/L Temp max (04/11@15:07) 103.1 Treatment: Vancomycin 1,000 MG IVPB Once, THEN 2,000 mg IVPB Q 12 HRS (PTD) Unasyn 3 GM IVPB Q 6 HRS 04/12 Incision and drainage of abscess .9NS 1,000 ML/HR X1 In your professional opinion, please clarify if these findings signify one of the following conditions: [ ] Sepsis POA [ ] Sepsis ruled out [ ] Other, please specify [ ] Unable to determine SIRS Criteria: 2 or more of the following may indicate SIRS -Temperature < 96.8F (36C) or > 101.0F (38.3C) -Heart Rate > 90 bpm -Respiratory Rate > 20 breaths/min or PaCO2 < 32 mmHg -White Blood Cell Count > 12,000 or < 4,000 cells/mm3 or > 10% bands (Template Last Reviewed: September 2020) MTDD
[2021-04-20 09:48] LABS: African American GFR (CKD) 113.9 (60.0-200.0); Albumin 4.1 g/dL (3.80-4.90); Albumin/Globulin Ratio 1.95 (1.60-3.17); Anion Gap 8.2 mmol/L (4.00-12.00); BUN/Creat Ratio 32.5 Ratio (12.00-20.00); Calcium 9.2 mg/dL (8.7-10.3); Carbon Dioxide 30.8 mmol/L (21.6-31.8); Globulin 2.1 g/dL (1.6-3.3); Non-African American GFR(CKD) 98.2 (60.0-200.0); Total Bilirubin 0.3 mg/dL (0.3-1.2); Total Protein 6.2 g/dL (6.2-8.2)
--- NOTE | 2021-04-20 11:02 | P.PN ---
Subjective Progress Note Date: 04/20/21 Principal diagnosis: Acute hypoxic respiratory failure due to sepsis obesity hypoventilation syndrome and history of pulmonary embolism Bilateral pneumonia Likely sleep disorder breathing and sleep apnea to be evaluated on outpatient basis for sleep apnea Right groin abscess formation History of prior pulmonary embolism currently denies any chest pain or shortness of breath to that extent Morbid obesity and likely sleep disorder breathing and sleep apnea 04/20/2021, patient seen eval examined during the rounds labs reviewed medications reviewed care plan discussed with the significant other and patient at length, patient able to get up and move around now we'll check room air pulse ox if more than 90% will DC the oxygen, patient remains on nebulized patient treatment with broad-spectrum antibiotics including azithromycin Unasyn and prednisone, patient has been continued on Coumadin as well, prior to discharge will DC the prednisone continue patient on antibiotics as per recommended by infectious disease services and continue bronchodilators with Symbicort 2 puffs 2 times a day and Ventolin HFA 2 puffs 4 times a day as needed, patient has been consult educated about smoking cessation 04/17/2021, patient seen eval examined during the rounds labs reviewed m edications reviewed care plan discussed, patient oxygen requirement continued to improve now on 3 L oxygen cough congestion shortness of breath improved labs reviewed, remains on high-dose steroids breathing treatments as well as broad- spectrum antibiotics including Zithromax respiratory culture however are still pending, patient did not use the BiPAP machine, 04/15/2021, patient seen eval examined during the rounds levels reviewed medications reviewed, remains short of breath, FiO2 however increased to 15 L oxygen eventually mask, has been 7 L high flow, chest x-ray reviewed bilateral diffuse infiltrate suggestive of a atypical pneumonia and is scheduled for bronchoscopy later on today, patient however remains afebrile and hemodynamically stable, PT/INR is 26.1 and 2.7, patient is being planned for bronchoscopy later on today 04/14/2021, patient seen eval reexamined labs reviewed medications reviewed care plan discussed, patient remains short of breath with intermittent dry nonprodu ctive cough oxygen is up to 3 L now, her heart over test came back negative, white cell count is up to 16,600 hemoglobin and hematocrit is 12 and 36 PT/INR is 37 3.9, BUN/creatinine normal sugars to 30 and 163, I have reviewed and discussed with the patient at length given that recurrent pustular infection is present we will evaluate for IgG deficiency syndrome, sometimes have been ordered we'll also discussed with infectious disease services 04/13/2021, patient seen eval reexamined still short of breath, ongoing intermittent dry nonproductive cough is present, patient has 2 L oxygen saturati on is 94% however at room air desaturated to 88%, computed tomography scan of the chest reviewed bilateral basal pneumonia is present, with patchy infiltrate involving upper lobe as well her covert testing is negative, currently patient has been on IV Unasyn along with vancomycin we will add IV steroids as well in order sputum studies This is a pleasant 30-year-old female came into the hospital with right chronic infection and abscess formation, she has been admitted into the hospital through the emergency department, main symptoms were swelling and pain in the right leg and right groin also had discomfort in the armpits as well as, patient does have a history of hidradenitis, she takes Keflex for last 2 weeks, patient started having fever is low-grade at home also new abscess formation noted came into the hospital for further evaluation, Dr. Lambert from infectious disease is following as well, patient does have a significant history of the severe morbid obesity, anxiety disorder, recurrent pulmonary embolism type 2 diabetes mellitus and possible surgical services in the right labia [facility] patient does smoke about 1 pack per day, currently patient is on 2 L oxygen due to shortness of breath, on arrival she was noted to have white cell count 19,500, with a BUN/creatinine 13.3, right lower extremity ultrasound negative for DVT, ultrasound of the right groin revealed superficial abscess 3.31.614 cm in size, currently patient is on bronchodilator IV Unasyn, IV vancomycin, her oral hypoglycemic agent along with Coumadin, her chest x-ray done yesterday no acute active cardio pulmonary disease however small lung volumes has been noted Objective - Vital Signs Vital signs: Vital Signs Temp 97.6 F 04/20/21 07:55 Pulse 65 04/20/21 07:55 Resp 18 04/20/21 07:55 BP 123/66 04/20/21 07:55 Pulse Ox 100 04/20/21 07:55 Intake & Output 04/19/21 04/20/21 04/20/21 18:59 06:59 18:59 Intake Total 360 1530 1080 Balance 360 1530 1080 Intake: Intake, IV Titration 450 Amount Ampicillin-Sulbactam 3 gm 200 In Sodium Chloride 0.9% 100 ml @ 200 mls/hr IVPB Q6HR [facility] Rx#:[id number] Azithromycin 500 mg In 250 Sodium Chloride 0.9% 250 ml @ 250 mls/hr IVPB DAILY@2100 [facility] Rx#: [id number] Oral 360 1080 1080 Other: # Voids 4 2 # Bowel Movements 1 - Exam - Constitutional General appearance: Improved shortness of breath - EENT Eyes: PERRLA Ears: bilateral: normal - Neck Carotids: bilateral: upstroke normal - Respiratory Respiratory: bilateral: CTA, however few basal crackles cannot be excluded - Cardiovascular Heart sounds: normal: S1 Abnormal Heart Sounds: systolic murmur - Gastrointestinal General gastrointestinal: soft - Integumentary Right groin erythematous indurated inflammatory changes with brownish discharge - Neurologic Neurologic: CNII-XII intact - Musculoskeletal Musculoskeletal: generalized weakness - Psychiatric Psychiatric: appropriate affect, intact judgment & insight, however patient broke into tears - Labs CBC & Chem 7: 04/16/21 04:35 04/20/21 06:05 Labs: Abnormal Lab Results - Last 24 Hours (Table) 04/17/21 04/19/21 04/19/21 Range/Units 05:17 11:18 16:18 PT (9.0-12.0) sec INR (<1.2) BUN/Creatinine Ratio (12.00-20.00) Ratio Glucose (70-110) mg/dL POC Glucose (mg/dL) 278 H 452 H (75-99) mg/dL Hemoglobin A1c 8.3 H (4.0-6.0) % ALT (8-44) U/L 04/19/21 04/20/21 04/20/21 Range/Units 20:34 06:05 06:05 PT 17.5 H (9.0-12.0) sec INR 1.8 H (<1.2) BUN/Creatinine Ratio 32.50 H (12.00-20.00) Ratio Glucose 170 H (70-110) mg/dL POC Glucose (mg/dL) 320 H (75-99) mg/dL Hemoglobin A1c (4.0-6.0) % ALT 48 H (8-44) U/L 04/20/21 Range/Units 07:32 PT (9.0-12.0) sec INR (<1.2) BUN/Creatinine Ratio (12.00-20.00) Ratio Glucose (70-110) mg/dL POC Glucose (mg/dL) 162 H (75-99) mg/dL Hemoglobin A1c (4.0-6.0) % ALT (8-44) U/L Assessment and Plan Assessment: Acute hypoxic respiratory failure due to sepsis Bilateral pneumonia likely bacterial obesity hypoventilation syndrome and history of pulmonary embolism Likely sleep disorder breathing and sleep apnea to be evaluated on outpatient basis for sleep apnea Right groin abscess formation and abscesses in axilla History of prior pulmonary embolism currently denies any chest pain or shortness of breath to that extent Morbid obesity and likely sleep disorder breathing and sleep apnea Plan: TCC steroids prior to discharge Antibiotics as per infectious disease services IgG and subtypes results are pending Continue anticoagulation as per plan Continue deep breathing exercises incentive spirometry BAL results still pending Increase activity as tolerated Continue titrated oxygen down as tolerated, check pulse ox at room air if more than 90% DC the oxygen Sleep study as outpatient Time with Patient: Greater than 30
[2021-04-20 11:31] LABS: HCT 45.1 % (37.2-46.3); HGB 14.2 g/dL (12.0-15.0); MCH 28.7 pg (27.0-32.0); MCHC 31.5 g/dL (32.0-37.0); MCV 91.3 fL (80.0-97.0); Platelet Count 317 X 10*3/uL (140-440); RBC 4.94 X 10*6/uL (4.10-5.20); RDW 13.9 % (11.5-14.5); WBC 18.62 X 10*3/uL (4.50-10.00)
[2021-04-20 11:32] LABS: Basophils # (M) 0 X 10*3/uL (0.00-0.10); Eosinophils # (M) 0 X 10*3/uL (0.04-0.35); Metamyelocytes % 3 % (0-0); Monocytes # (M) 0.74 X 10*3/uL (0.20-1.00); Myelocytes % 3 % (0-0); Neutrophils # (M) 12.66 X 10*3/uL (2.00-8.90); Neutrophils % (M) 68 %
[2021-04-20 11:40] LABS: Glucose,Whole Blood 289 mg/dL (75-99)
--- NOTE | 2021-04-20 14:20 | PN ---
PROGRESS NOTE DATE OF SERVICE: 04/20/2021 REASON FOR FOLLOWUP: Right labial/groin abscess cellulitis. INTERVAL HISTORY: Patient is afebrile. The patient is breathing comfortably. Denies having chest pain. No shortness of breath, cough currently on room air. No vomiting. No abdominal pain or diarrhea. PHYSICAL EXAMINATION: Her blood pressure 123/66, pulse of 55. Temperature 97.6. Sating 97% on 2 L. General description is a middle-aged female up in the room in no distress. Respiratory system: Unlabored breathing, clear to auscultation anteriorly. Heart S1, S2. Regular rate and rhythm. Abdomen soft, no tenderness. LABS: Culture showing anaerobes. Bronch culture has been negative. DIAGNOSTIC IMPRESSION AND PLAN: Patient with right labia abscess status post drainage, culture positive for anaerobes. Plan is for Augmentin 875 b.i.d. for 10 days and need to monitor closely while on antibiotic and close outpatient followup. Prescription sent to the pharmacy. MMODL / IJN: [id number] /
--- NOTE | 2021-04-20 17:22 | PN ---
PROGRESS NOTE ADDENDUM: Please add sepsis ruled in. MMODL / IJN: [id number] /
[2021-04-20] MEDS ORDERED: WARFARIN 7.5 MG TAB PO ONE (18:00)
[2021-04-20] MEDS ORDERED: AZITHROMYCIN 500 MG TAB PO SCH (21:00)
[2021-04-20] MEDS ORDERED: AMOXIC-POT CLAV 875-125MG 1 EACH TAB PO SCH (21:00)
== END 2021-04-20 14:26 | disposition home health service (06) | DRG 871 ==
LOC: EC 08:31 → 6PED 10:37 → 4SSUR 13:57
PROVIDERS: ADMIT Family Medicine; ATTEND Family Medicine
PROC: 0Y9 Anatomical Regions, Lower Extremities, Drainage (ICD-10-PCS; principal; 2021-04-12)
PROC: 5A09457 Assistance with Respiratory Ventilation, 24-96 Consecutive Hours, Continuous Positive Airway Pressure (ICD-10-PCS; 2021-04-14)
PROC: 0B9F8ZX Drainage of Right Lower Lung Lobe, Via Natural or Artificial Opening Endoscopic, Diagnostic (ICD-10-PCS; 2021-04-15)
DX: A41.02 Sepsis due to Methicillin resistant Staphylococcus aureus (principal); J96.01 Acute respiratory failure with hypoxia; J15.9 Unspecified bacterial pneumonia; L02.415 Cutaneous abscess of right lower limb; L02.214 Cutaneous abscess of groin; L02.31 Cutaneous abscess of buttock; L03.314 Cellulitis of groin; E66.2 Morbid (severe) obesity with alveolar hypoventilation; N76.4 Abscess of vulva; T17.590A Other foreign object in bronchus causing asphyxiation, initial encounter; L73.2 Hidradenitis suppurativa; E11.9 Type 2 diabetes mellitus without complications; F17.200 Nicotine dependence, unspecified, uncomplicated; F32.9 Major depressive disorder, single episode, unspecified; F41.9 Anxiety disorder, unspecified; I27.20 Pulmonary hypertension, unspecified; J45.909 Unspecified asthma, uncomplicated; L01.00 Impetigo, unspecified; Z20.822 Contact with and (suspected) exposure to COVID-19; Z79.01 Long term (current) use of anticoagulants; Z79.84 Long term (current) use of oral hypoglycemic drugs; Z79.890 Hormone replacement therapy; Z79.899 Other long term (current) drug therapy; Z86.711 Personal history of pulmonary embolism
CPT/HCPCS: 31624; 36415; 71045; 71275; 80053; 80202; 82787; 83036; 83605; 83615; 83735; 84145; 84484; 84702; 85025; 85379; 85610; 86140; 87040; 87070; 87075; 87205; 87449; 87635; 93005; 93306; 94640; 94660; 94760; 96361; 96374; 99285

== ENCOUNTER 2021-05-07 22:50 | Emergency (ER) | payer OTHER ==
[2021-05-08] MEDS ORDERED: MORPHINE SULFATE 4 MG/ML SYRINGE IV STA (00:06)
[2021-05-08] MEDS ORDERED: SODIUM CHLORIDE 0.9% 1,000 ML IV STA (00:06)
--- NOTE | 2021-05-08 00:35 | ED ---
Chest Pain HPI - General Chief Complaint: Chest Pain Stated Complaint: Chest Pain, leg swelling Time Seen by Provider: 05/07/21 23:17 Source: patient, RN notes reviewed, old records reviewed Mode of arrival: ambulatory Limitations: no limitations - History of Present Illness Initial Comments: This is a 30-year-old female to the emergency department for evaluation today. Patient presents today for evaluation of pneumonia. Patient has history of blood clots and PEs also having right lower extremity pain and swelling patient again states that she did recently recovered from pneumonia MD Complaint: chest pain, other (RLE edema) -: days(s) Onset: during rest, during exertion Pain Location: substernal, left chest Severity scale (1-10): 7 Quality: sharp Consistency: constant Improves With: nothing Worsens With: nothing Context: recent illness Anginal Symptoms: dyspnea Other Symptoms: palpitations Treatments Prior to Arrival: none - Related Data Home Medications Medication Instructions Recorded Confirmed ALPRAZolam [Xanax] 0.25 mg PO DAILY PRN 04/10/21 04/10/21 Biotin 5 mg PO DAILY 04/10/21 04/10/21 Cephalexin [Keflex] 500 mg PO BID 04/10/21 04/10/21 Dapagliflozin Propanediol [Farxiga] 10 mg PO DAILY 04/10/21 04/10/21 Dextroamphetamine/Amphetamine 10 mg PO DAILY 04/10/21 04/10/21 [Dextroamp-Amphetamin 10 mg Tab] Levothyroxine Sodium [Synthroid] 300 mcg PO DAILY 04/10/21 04/10/21 Metoclopramide [Reglan] 5 mg PO AC-BID 04/10/21 04/10/21 Topiramate 50 mg PO BID 04/10/21 04/10/21 Warfarin [Coumadin] 7.5 mg PO DAILY 04/10/21 04/10/21 glipiZIDE [Glucotrol] 10 mg PO AC-BID 04/10/21 04/10/21 hydroCHLOROthiazide [Hydrodiuril] 25 mg PO DAILY 04/10/21 04/10/21 Previous Rx's Medication Instructions Recorded Amoxic-Pot Clav 875-125Mg 1 tab PO BID 10 Days #20 tab 04/20/21 [Augmentin 875-125] Allergies Allergy/AdvReac Type Severity Reaction Status Date / Time pregabalin [From Lyrica] Allergy Swelling Verified 05/07/21 23:13 Review of Systems ROS Statement: Those systems with pertinent positive or pertinent negative responses have been documented in the HPI. ROS Other: All systems not noted in ROS Statement are negative. Past Medical History Past Medical History: Diabetes Mellitus, Pulmonary Embolus (PE) Additional Past Medical History / Comment(s): DM type 2, History of Any Multi-Drug Resistant Organisms: None Reported Past Surgical History: Section Additional Past Surgical History / Comment(s): right leg debridement Past Psychological History: Anxiety Smoking Status: Current every day smoker Past Alcohol Use History: None Reported Past Drug Use History: None Reported General Exam Limitations: no limitations General appearance: alert, in no apparent distress Head exam: Present: atraumatic, normocephalic, normal inspection Eye exam: Present: normal appearance, PERRL, EOMI. Absent: scleral icterus, conjunctival injection, periorbital swelling ENT exam: Present: normal exam, mucous membranes moist Neck exam: Present: normal inspection. Absent: tenderness, meningismus, lymphadenopathy Respiratory exam: Present: normal lung sounds bilaterally. Absent: respiratory distress, wheezes, rales, rhonchi, stridor Cardiovascular Exam: Present: regular rate, normal rhythm, normal heart sounds. Absent: systolic murmur, diastolic murmur, rubs, gallop, clicks GI/Abdominal exam: Present: soft, normal bowel sounds. Absent: distended, tenderness, guarding, rebound, rigid Extremities exam: Present: normal inspection, full ROM, normal capillary refill. Absent: tenderness, pedal edema, joint swelling, calf tenderness Back exam: Present: normal inspection Neurological exam: Present: alert, oriented X3, CN II-XII intact Psychiatric exam: Present: normal affect, normal mood Skin exam: Present: warm, dry, intact, normal color. Absent: rash Course Vital Signs 05/07/21 05/08/21 05/08/21 23:09 00:02 01:00 Temperature 98.7 F Pulse Rate 84 80 Pulse Rate [ 79 No[employer] Slee[employer]er ] Respiratory 19 18 Rate Blood Pressure 167/88 134/57 O2 Sat by Pulse 99 99 Oximetry - Reevaluation(s) Reevaluation #1: 05/08/21 02:36 Medical record is reviewed Reevaluation #2: 05/08/21 02:36 Pain and symptoms are improved Reevaluation #3: 05/08/21 02:36 Patient is informed of results and questions have been answered Chest Pain MDM - MDM 30 female to the emergency today. Patient does have chest pain no blood clots, right lower extremity pain and swelling or pain is improved. No DVT. Patient can be discharged home Disposition Clinical Impression: Leg edema, right, Chest pain Disposition: HOME SELF-CARE Condition: Good Instructions (If sedation given, give patient instructions): Chest Pain (ED), Leg Edema (ED) Is patient prescribed a controlled substance at d/c from ED?: No Referrals: Rodrick Rose MD [Primary Care Provider] - 1-2 days
--- NOTE | 2021-05-08 00:50 | US ---
EXAMINATION TYPE: US venous doppler duplex LE RT DATE OF EXAM: 05/08/2021 12:40 AM COMPARISON: US 04/10/2021 CLINICAL HISTORY: pe. Right leg swelling SIDE PERFORMED: Right TECHNIQUE: The lower extremity deep venous system is examined utilizing real time linear array sonog rodo with graded compression, doppler sonography and color-flow sonography. VESSELS IMAGED: Common Femoral Vein Deep Femoral Vein Greater Saphenous Vein * Femoral Vein Popliteal Vein Small Saphenous Vein * Proximal Calf Veins (* superficial vessels) Right Leg: Negative for DVT IMPRESSION: No evidence of deep vein thrombosis in the right leg.
[2021-05-08 01:08] LABS: Basophils % (A) 0 %; Eosinophils # (A) 0.4 k/uL (0-0.7); Eosinophils % (A) 4 %; HCT 40.4 % (34.0-46.0); HGB 13.2 gm/dL (11.4-16.0); Lymphocytes # (A) 3.1 k/uL (1.0-4.8); Lymphocytes % (A) 35 %; MCHC 32.6 g/dL (31.0-37.0); MCV 92.1 fL (80.0-100.0); Mean Platelet Volume 8.2; Monocytes # (A) 0.4 k/uL (0-1.0); Monocytes % (A) 5 %; Neutrophils # (A) 4.7 k/uL (1.3-7.7); Neutrophils % (A) 53 %; Platelet Count 169 k/uL (150-450); RBC 4.38 m/uL (3.80-5.40); RDW 15.7 % (11.5-15.5); WBC 8.9 k/uL (3.8-10.6)
[2021-05-08 01:16] VITALS: RESP 18
[2021-05-08 01:24] LABS: ALT 25 U/L (4-34); AST 20 U/L (14-36); African American GFR (CKD) >90 (>60 ml/min/1.73 sqM); Alkaline Phosphatase 84 U/L (38-126); Anion Gap 9 mmol/L; Blood Urea Nitrogen 13 mg/dL (7-17); Calcium 9.9 mg/dL (8.4-10.2); Carbon Dioxide 22 mmol/L (22-30); Chloride 107 mmol/L (98-107); Glucose 198 mg/dL (74-99); Magnesium 1.9 mg/dL (1.6-2.3); Non-African American GFR(CKD) >90 (>60 ml/min/1.73 sqM); Potassium 3.8 mmol/L (3.5-5.1); Sodium 138 mmol/L (137-145); Total Bilirubin 0.4 mg/dL (0.2-1.3); Total Protein 6.6 g/dL (6.3-8.2)
[2021-05-08 01:49] LABS: INR 1.2 (<1.2); Partial Thromboplastin Time 28.2 sec (22.0-30.0); Prothrombin Time 12.2 sec (9.0-12.0)
--- NOTE | 2021-05-08 02:27 | CT ---
EXAMINATION TYPE: CT angio chest DATE OF EXAM: 05/08/2021 COMPARISON: 04/12/2021 HISTORY: chest pain and leg swelling. r/o PE CT DLP: 653.9 mGycm Automated exposure control for dose reduction was used. CONTRAST: Performed with IV Contrast, patient injected with 85ml mL of Isovue 370. There are 3-D post processed images. The lungs are clear of consolidation. There is some mild linear infiltrate and atelectasis in the rig ht middle lobe and lingula left upper lobe. There is no pleural effusion. Heart is enlarged. There is no pericardial effusion. There are no hilar masses. There is normal contrast opacification of the pulmonary arteries. There ar e no filling defects. Thoracic aorta is intact. There is no aneurysm or dissection. There is no media stinal adenopathy. There are a few bronchial lymph nodes measuring up to 1 cm. The thoracic spine is intact. There is no compression fracture. Sternum is intact. The ribs appear intact. IMPRESSION: No evidence of pulmonary embolism. There are a few nonspecific bilateral bronchial lymph nodes. Minim al linear infiltrate and atelectasis in the right middle lobe and lingula left upper lobe. No suspici ous pulmonary mass. There is significant clearing of the extensive pulmonary infiltrates compared to recent exam.
[2021-05-08] MEDS ORDERED: FUROSEMIDE 10 MG/ML 4 ML VIAL IV STA (02:37)
[2021-05-08 03:47] VITALS: BP 117/57; PULSE 72
[2021-05-08 03:59] VITALS: TEMP 98.1
== END 2021-05-08 03:56 | disposition home or self-care (01) ==
LOC: EC 22:50
DX: R07.9 Chest pain, unspecified (principal); R60.0 Localized edema; E11.9 Type 2 diabetes mellitus without complications; F17.200 Nicotine dependence, unspecified, uncomplicated; F41.9 Anxiety disorder, unspecified; Z79.01 Long term (current) use of anticoagulants; Z79.84 Long term (current) use of oral hypoglycemic drugs; Z79.890 Hormone replacement therapy; Z79.899 Other long term (current) drug therapy; Z86.711 Personal history of pulmonary embolism; Z86.718 Personal history of other venous thrombosis and embolism
CPT/HCPCS: 96374 ×2; 96375 ×2; 96361 ×2; 99285 ×2; 36415; 85379; 83880; 80053; 83735; 84484; 85025; 85610; 85730; 93971; 71275; J2270; J1940; Q9967

== ENCOUNTER 2022-04-30 02:38 | Emergency (ER) | payer OTHER ==
[2022-04-30 02:45] VITALS: TEMP 98
--- NOTE | 2022-04-30 03:05 | ED ---
Abdominal Pain HPI - General Chief Complaint: Abdominal Pain Stated Complaint: Right side pain Time Seen by Provider: 04/30/22 03:03 Source: patient, RN notes reviewed, old records reviewed Mode of arrival: ambulatory Limitations: no limitations - History of Present Illness Initial Comments: This is a 29-year-old female to the emergency department for evaluation of flank pain and abdominal pain. Patient states she also feels like killing a swollen positive nausea no vomiting no fevers. MD Complaint: abdominal pain, flank pain -: days(s) Location: diffuse, RLQ, R flank Radiation: epigastric, suprapubic Migration to: epigastric, suprapubic Severity: moderate Severity scale (1-10): 6 Quality: cramping, aching Consistency: constant Improves With: nothing Worsens With: nothing Associated Symptoms: nausea Treatments Prior to Arrival: other (0) - Related Data Home Medications Medication Instructions Recorded Confirmed ALPRAZolam [Xanax] 0.25 mg PO HS 04/10/21 09/09/21 Levothyroxine Sodium [Synthroid] 300 mcg PO DAILY 04/10/21 09/11/21 Metoclopramide [Reglan] 5 mg PO BID-W/MEALS 04/10/21 09/11/21 Topiramate 50 mg PO BID 04/10/21 09/11/21 Warfarin [Coumadin] 7.5 mg PO DAILY 04/10/21 09/11/21 glipiZIDE [Glucotrol] 10 mg PO AC-BID 04/10/21 09/11/21 Biotin 10,000 mcg PO DAILY 09/09/21 09/11/21 Dextroamphetamine/Amphetamine 20 mg PO BID 09/09/21 09/11/21 [Adderall] Omeprazole 20 mg PO DAILY 09/09/21 09/11/21 Previous Rx's Medication Instructions Recorded Acetaminophen Tab [Tylenol] 650 mg PO Q6H #30 tab 09/11/21 Docusate [Colace] 100 mg PO BID #20 capsule 09/11/21 Ibuprofen [Motrin] 600 mg PO Q6HR PRN #40 tab 09/11/21 oxyCODONE HCL [OxyIR] 5 mg PO Q6H PRN 3 Days #10 tab 09/11/21 Allergies Allergy/AdvReac Type Severity Reaction Status Date / Time pregabalin [From Lyrica] Allergy Swelling Verified 05/01/22 00:48 of mouth Review of Systems ROS Statement: Those systems with pertinent positive or pertinent negative responses have been documented in the HPI. ROS Other: All systems not noted in ROS Statement are negative. Past Medical History Past Medical History: COPD, Diabetes Mellitus, GERD/Reflux, Pneumonia, Pulmonary Embolus (PE), Skin Disorder, Sleep Apnea/CPAP/BIPAP, Thyroid Disorder Additional Past Medical History / Comment(s): migraines, hernia, fatty liver, HS(hidradenitis suppurativa), hashimotos, kidney stone, gallstones, nectrotzing fasciitis rt leg, "small hole in heart", pulmonary hypertension History of Any Multi-Drug Resistant Organisms: None Reported Past Surgical History: Section Additional Past Surgical History / Comment(s): right leg debridement, KRISTAL, colonsocopy, "lung lumpectomy" Past Anesthesia/Blood Transfusion Reactions: Previous Problems w/ Anesthesia Additional Past Anesthesia/Blood Transfusion Reaction / Comment(s): "I was told they had hard time with my O2 levels" Past Psychological History: Anxiety, Depression Smoking Status: Current every day smoker Past Alcohol Use History: None Reported Past Drug Use History: None Reported - Past Family History Mother Family Medical History: Cancer Additional Family Medical History / Comment(s): "blood clot in kidney" General Exam Limitations: no limitations General appearance: alert, in no apparent distress Head exam: Present: atraumatic, normocephalic, normal inspection Eye exam: Present: normal appearance, PERRL, EOMI. Absent: scleral icterus, conjunctival injection, periorbital swelling ENT exam: Present: normal exam, mucous membranes moist Neck exam: Present: normal inspection. Absent: tenderness, meningismus, lymphadenopathy Respiratory exam: Present: normal lung sounds bilaterally. Absent: respiratory distress, wheezes, rales, rhonchi, stridor Cardiovascular Exam: Present: regular rate, normal rhythm, normal heart sounds. Absent: systolic murmur, diastolic murmur, rubs, gallop, clicks GI/Abdominal exam: Present: soft, normal bowel sounds. Absent: distended, tenderness, guarding, rebound, rigid Extremities exam: Present: normal inspection, full ROM, normal capillary refill. Absent: tenderness, pedal edema, joint swelling, calf tenderness Back exam: Present: normal inspection Neurological exam: Present: alert, oriented X3, CN II-XII intact Psychiatric exam: Present: normal affect, normal mood Skin exam: Present: warm, dry, intact, normal color. Absent: rash Course Vital Signs 04/30/22 04/30/22 04/30/22 02:42 04:31 06:04 Temperature 98 F Pulse Rate 73 105 H Respiratory 18 18 Rate Blood Pressure 145/81 125/78 O2 Sat by Pulse 100 99 Oximetry 04/30/22 07:19 Temperature 98 F Pulse Rate 105 H Respiratory 18 Rate Blood Pressure 125/78 O2 Sat by Pulse 99 Oximetry - Reevaluation(s) Reevaluation #1: 04/30/22 medical record is reviewed patient symptoms improved here in the ER patient informed of results and questions answered Medical Decision Making - Medical Decision Making 29 female to the emergency department for evaluation patient coming in for nonspecific abdominal pain no-cost on the pain is controlled patient can be discharged home - Lab Data Result diagrams: 04/30/22 03:26 04/30/22 03:26 Lab Results 04/30/22 04/30/22 04/30/22 Range/Units 03:26 03:26 03:26 WBC 14.4 H (3.8-10.6) k/uL RBC 4.48 (3.80-5.40) m/uL Hgb 13.5 (11.4-16.0) gm/dL Hct 40.4 (34.0-46.0) % MCV 90.2 (80.0-100.0) fL MCH 30.1 (25.0-35.0) pg MCHC 33.4 (31.0-37.0) g/dL RDW 13.6 (11.5-15.5) % Plt Count 175 (150-450) k/uL MPV 9.0 Neutrophils % 69 % Lymphocytes % 22 % Monocytes % 4 % Eosinophils % 4 % Basophils % 1 % Neutrophils # 9.9 H (1.3-7.7) k/uL Lymphocytes # 3.2 (1.0-4.8) k/uL Monocytes # 0.5 (0-1.0) k/uL Eosinophils # 0.5 (0-0.7) k/uL Basophils # 0.1 (0-0.2) k/uL Sodium 135 L (137-145) mmol/L Potassium 3.9 (3.5-5.1) mmol/L Chloride 101 (98-107) mmol/L Carbon Dioxide 21 L (22-30) mmol/L Anion Gap 13 mmol/L BUN 13 (7-17) mg/dL Creatinine 0.75 (0.52-1.04) mg/dL Est GFR (CKD-EPI)AfAm >90 (>60 ml/min/1.73 sqM) Est GFR (CKD-EPI)NonAf >90 (>60 ml/min/1.73 sqM) Glucose 265 H (74-99) mg/dL Calcium 9.2 (8.4-10.2) mg/dL Total Bilirubin 0.3 (0.2-1.3) mg/dL AST 28 (14-36) U/L ALT 31 (4-34) U/L Alkaline Phosphatase 82 (38-126) U/L Total Protein 6.7 (6.3-8.2) g/dL Albumin 4.3 (3.5-5.0) g/dL Amylase 34 (30-110) U/L Lipase 143 (23-300) U/L Urine Color Light Yellow Urine Appearance Clear (Clear) Urine pH 5.5 (5.0-8.0) Ur Specific [place] 1.011 (1.001-1.035) Urine Protein Negative (Negative) Urine Glucose (UA) 3+ H (Negative) Urine Ketones Negative (Negative) Urine Blood Negative (Negative) Urine Nitrite Negative (Negative) Urine Bilirubin Negative (Negative) Urine Urobilinogen <2.0 (<2.0) mg/dL Ur Leukocyte Esterase Trace H (Negative) Urine RBC 1 (0-5) /hpf Urine WBC 3 (0-5) /hpf Ur Squamous Epith Cells 4 (0-4) /hpf Urine Bacteria Occasional H (None) /hpf Urine Mucus Rare H (None) /hpf - Radiology Data Radiology results: report reviewed (CT of the abdomen and pelvis negative for acute disease), image reviewed Disposition Clinical Impression: Abdominal pain Disposition: HOME SELF-CARE Condition: Fair Instructions (If sedation given, give patient instructions): Abdominal Pain (ED) Is patient prescribed a controlled substance at d/c from ED?: No Referrals: Rodrick Rose MD [Primary Care Provider] - 1-2 days
[2022-04-30 03:37] LABS: Basophils # (A) 0.1 k/uL (0-0.2); Basophils % (A) 1 %; Eosinophils # (A) 0.5 k/uL (0-0.7); Eosinophils % (A) 4 %; HCT 40.4 % (34.0-46.0); HGB 13.5 gm/dL (11.4-16.0); Lymphocytes # (A) 3.2 k/uL (1.0-4.8); Lymphocytes % (A) 22 %; MCH 30.1 pg (25.0-35.0); MCHC 33.4 g/dL (31.0-37.0); MCV 90.2 fL (80.0-100.0); Monocytes # (A) 0.5 k/uL (0-1.0); Monocytes % (A) 4 %; Neutrophils # (A) 9.9 k/uL (1.3-7.7); Neutrophils % (A) 69 %; Platelet Count 175 k/uL (150-450); RBC 4.48 m/uL (3.80-5.40); RDW 13.6 % (11.5-15.5); WBC 14.4 k/uL (3.8-10.6)
[2022-04-30 03:47] LABS: ALT 31 U/L (4-34); AST 28 U/L (14-36); African American GFR (CKD) >90 (>60 ml/min/1.73 sqM); Albumin 4.3 g/dL (3.5-5.0); Alkaline Phosphatase 82 U/L (38-126); Amylase 34 U/L (30-110); Anion Gap 13 mmol/L; Blood Urea Nitrogen 13 mg/dL (7-17); Calcium 9.2 mg/dL (8.4-10.2); Carbon Dioxide 21 mmol/L (22-30); Chloride 101 mmol/L (98-107); Glucose 265 mg/dL (74-99); Lipase 143 U/L (23-300); Non-African American GFR(CKD) >90 (>60 ml/min/1.73 sqM); Potassium 3.9 mmol/L (3.5-5.1); Sodium 135 mmol/L (137-145); Total Bilirubin 0.3 mg/dL (0.2-1.3); Total Protein 6.7 g/dL (6.3-8.2)
[2022-04-30] MEDS ORDERED: HYDROmorphone 1 MG/ML 1 ML SYRINGE IVP STA (04:18)
[2022-04-30] MEDS ORDERED: PANTOPRAZOLE 40 MG/10 ML VIAL IVP STA (04:18)
[2022-04-30] MEDS ORDERED: ONDANSETRON 4 MG/2 ML VIAL IVP STA (04:18)
[2022-04-30 04:20] LABS: Appearance,Urine Clear (Clear); Bacteria,Urine Occasional /hpf; Bilirubin,Urine Negative (Negative); Blood,Urine Negative (Negative); Color,Urine Light Yellow; Glucose,Urine (UA) 3+ (Negative); Ketones,Urine Negative (Negative); Leukocyte Esterase,Urine Trace (Negative); Mucus,Urine Rare /hpf; Nitrite,Urine Negative (Negative); PH, Urine 5.5 (5.0-8.0); Protein,Urine Negative (Negative); RBC,Urine 1 /hpf (0-5); Specific Gravity,Urine 1.011 (1.001-1.035); Squamous Epithelial Cell,Urine 4 /hpf (0-4); Urobilinogen,Urine <2.0 mg/dL (<2.0); WBC,Urine 3 /hpf (0-5)
[2022-04-30 04:31] VITALS: RESP 18
--- NOTE | 2022-04-30 05:01 | CT ---
EXAMINATION TYPE: CT abdomen pelvis wo con DATE OF EXAM: 04/30/2022 COMPARISON: None HISTORY: right sided abdominal pain and swelling. no prior on PACS CT DLP: 1569.5 mGycm Automated exposure control for dose reduction was used. Images obtained from the diaphragm to the floor the pelvis with no contrast. The lung bases are clear. No pleural effusion. Heart size is normal. No pericardial effusion. Liver and spleen are intact. Stomach is intact. No pancreatic mass. Gallbladder is absent. The bile d ucts are not dilated. There is no adrenal mass. Kidneys show normal size and contour. No hydronephrosis. Ureters are not di lated. No retroperitoneal adenopathy. Appendix is posterior and appears normal. Bladder distends smoo thly. No inguinal hernia. No free fluid in the pelvis. Uterus is anteverted. There is IUD in the lowe r uterine segment. No pelvic mass. The lumbar vertebra have normal alignment. There is vacuum disc at L4-5. Facet joints are intact. The bony pelvis is intact. The hip joints are intact. There is posterior disc bulging at L4-5. There is no mesenteric edema. No ascites or free air. No sign of a bowel obstruction. IMPRESSION: Normal appendix. There is IUD which is not in optimal position. IUD is in mid and lower uterus. There is posterior L4-5 disc bulging.
[2022-04-30 06:05] VITALS: BP 125/78; PULSE 105
== END 2022-04-30 07:20 | disposition home or self-care (01) ==
LOC: EC 02:38
DX: R10.84 Generalized abdominal pain (principal); R10.31 Right lower quadrant pain; J44.9 Chronic obstructive pulmonary disease, unspecified; E11.9 Type 2 diabetes mellitus without complications; K21.9 Gastro-esophageal reflux disease without esophagitis; E07.9 Disorder of thyroid, unspecified; Z86.711 Personal history of pulmonary embolism; Z99.89 Dependence on other enabling machines and devices; Z79.890 Hormone replacement therapy; Z79.899 Other long term (current) drug therapy; Z79.84 Long term (current) use of oral hypoglycemic drugs; Z79.01 Long term (current) use of anticoagulants; Z88.8 Allergy status to other drugs, medicaments and biological substances; F17.200 Nicotine dependence, unspecified, uncomplicated
CPT/HCPCS: 36415; 80053; 82150; 83690; 85025; 81001; 74176; 99284; 96374; 96375; J2405; J1170; C9113

== ENCOUNTER 2022-05-01 00:34 | Emergency (ER) | payer OTHER ==
[2022-05-01 00:51] VITALS: BP 183/94; PULSE 91; RESP 16; TEMP 97.8
--- NOTE | 2022-05-01 01:33 | ED ---
General Adult HPI - General Chief complaint: Abdominal Pain Stated complaint: abd swelling, rt leg swelling Time Seen by Provider: 05/01/22 01:15 Source: patient, RN notes reviewed Mode of arrival: ambulatory Limitations: no limitations - History of Present Illness Initial comments: Patient is a 31-year-old female presents to the emergency room with complaints of abdominal pain, back pain and lower extremity swelling. She was here in the emergency room yesterday with similar complaints and had a full workup which included blood work, urinalysis and CT of the abdomen which was negative for significant findings. She states that she contacted her primary care provider regarding her symptoms that she feels are worsening and he advised her to return to the emergency room and have him notified once she arrived. Her primary care provider is Dr. Rodrick Rose. She admits to poorly controlled diabetes on her current insulin regimen but will not disclose typical glucose readings. In addition to her diabetic history she has a past medical history significant for hypothyroidism, hypertension, hyperlipidemia, fatty liver, COPD, pulmonary emboli, Covid pneumonia and GERD. - Related Data Home Medications Medication Instructions Recorded Confirmed ALPRAZolam [Xanax] 0.25 mg PO HS 04/10/21 09/09/21 Levothyroxine Sodium [Synthroid] 300 mcg PO DAILY 04/10/21 09/11/21 Metoclopramide [Reglan] 5 mg PO BID-W/MEALS 04/10/21 09/11/21 Topiramate 50 mg PO BID 04/10/21 09/11/21 Warfarin [Coumadin] 7.5 mg PO DAILY 04/10/21 09/11/21 glipiZIDE [Glucotrol] 10 mg PO AC-BID 04/10/21 09/11/21 Biotin 10,000 mcg PO DAILY 09/09/21 09/11/21 Dextroamphetamine/Amphetamine 20 mg PO BID 09/09/21 09/11/21 [Adderall] Omeprazole 20 mg PO DAILY 09/09/21 09/11/21 Previous Rx's Medication Instructions Recorded Acetaminophen Tab [Tylenol] 650 mg PO Q6H #30 tab 09/11/21 Docusate [Colace] 100 mg PO BID #20 capsule 09/11/21 Ibuprofen [Motrin] 600 mg PO Q6HR PRN #40 tab 09/11/21 oxyCODONE HCL [OxyIR] 5 mg PO Q6H PRN 3 Days #10 tab 09/11/21 Allergies Allergy/AdvReac Type Severity Reaction Status Date / Time pregabalin [From Lyrica] Allergy Swelling Verified 05/01/22 00:48 of mouth Review of Systems ROS Statement: Those systems with pertinent positive or pertinent negative responses have been documented in the HPI. ROS Other: All systems not noted in ROS Statement are negative. Past Medical History Past Medical History: COPD, Diabetes Mellitus, GERD/Reflux, Pneumonia, Pulmonary Embolus (PE), Skin Disorder, Sleep Apnea/CPAP/BIPAP, Thyroid Disorder Additional Past Medical History / Comment(s): migraines, hernia, fatty liver, HS(hidradenitis suppurativa), hashimotos, kidney stone, gallstones, nectrotzing fasciitis rt leg, "small hole in heart", pulmonary hypertension History of Any Multi-Drug Resistant Organisms: None Reported Past Surgical History: Section Additional Past Surgical History / Comment(s): right leg debridement, KRISTAL, colonsocopy, "lung lumpectomy" Past Anesthesia/Blood Transfusion Reactions: Previous Problems w/ Anesthesia Additional Past Anesthesia/Blood Transfusion Reaction / Comment(s): "I was told they had hard time with my O2 levels" Past Psychological History: Anxiety, Depression Smoking Status: Current every day smoker Past Alcohol Use History: None Reported Past Drug Use History: None Reported - Past Family History Mother Family Medical History: Cancer Additional Family Medical History / Comment(s): "blood clot in kidney" General Exam Limitations: no limitations General appearance: alert, in no apparent distress, obese Head exam: Present: atraumatic, normocephalic, normal inspection Eye exam: Present: normal appearance, PERRL, EOMI. Absent: scleral icterus, conjunctival injection, periorbital swelling ENT exam: Present: normal exam, mucous membranes moist Neck exam: Present: normal inspection, full ROM Respiratory exam: Present: normal lung sounds bilaterally. Absent: respiratory distress, wheezes, rales, rhonchi, stridor Cardiovascular Exam: Present: regular rate, normal rhythm, normal heart sounds. Absent: systolic murmur, diastolic murmur, rubs, gallop, clicks GI/Abdominal exam: Present: soft, normal bowel sounds, other (Rounded). Absent: distended, tenderness, guarding, rebound, rigid Extremities exam: Present: normal inspection. Absent: pedal edema, joint swelling Back exam: Present: normal inspection. Absent: full ROM (Limited due to pain) Neurological exam: Present: alert, oriented X3, CN II-XII intact Psychiatric exam: Present: normal affect, normal mood Skin exam: Present: warm, dry, intact, normal color. Absent: rash Course Vital Signs 05/01/22 00:49 Temperature 97.8 F Pulse Rate 91 Respiratory 16 Rate Blood Pressure 183/94 O2 Sat by Pulse 98 Oximetry Medical Decision Making - Medical Decision Making 31-year-old female presenting to the emergency room with complaints of abdominal swelling, lower extremity swelling and back pain. On exam no evidence of lower extremity edema, ascites or flank tenderness. Full workup yesterday including diagnostic imaging of computed tomography scan and blood work completed. No indication for repeat diagnostic imaging or laboratory studies. Per patient's recommendations by her primary care provider will contact Dr. Rodrick Bennett. Findings of exam and previous workup from yesterday reviewed with Dr. Rose at length. He reports that without any admission criteria have patient follow-up in his office on Tuesday. Patient now reports that she has some shortness of breath is concerned that she has a blood clot in her leg is going to her lungs. Offered to have patient have Doppler completed and further evaluation regarding DVT however she declines and wishes to go home. Antibiotics regarding urinary tract infection as evidenced by urinalysis completed yesterday offered and declined as she is currently on Keflex for an at bedtime lesion that was r ecently drained. Will discharge patient home with follow-up with Dr. Rose on Tuesday. Case discussed with Dr. Carlson. Disposition Clinical Impression: Back pain, Abdominal pain Disposition: HOME SELF-CARE Condition: Stable Additional Instructions: Please follow-up with your primary care provider on Tuesday per his recommendations. Please continue your current antibiotic therapy as previously prescribed. Is patient prescribed a controlled substance at d/c from ED?: No Referrals: Rodrick Rose MD [Primary Care Provider] - 1-2 days Time of Disposition: 02:13
== END 2022-05-01 02:42 | disposition home or self-care (01) ==
LOC: EC 00:34
DX: R10.9 Unspecified abdominal pain (principal); M54.9 Dorsalgia, unspecified; R19.00 Intra-abdominal and pelvic swelling, mass and lump, unspecified site; M79.89 Other specified soft tissue disorders; J44.9 Chronic obstructive pulmonary disease, unspecified; E11.9 Type 2 diabetes mellitus without complications; K21.9 Gastro-esophageal reflux disease without esophagitis; I10 Essential (primary) hypertension; E78.5 Hyperlipidemia, unspecified; E03.9 Hypothyroidism, unspecified; Z86.711 Personal history of pulmonary embolism; F17.200 Nicotine dependence, unspecified, uncomplicated; Z53.20 Procedure and treatment not carried out because of patient's decision for unspecified reasons; Z79.890 Hormone replacement therapy; Z79.01 Long term (current) use of anticoagulants; Z79.84 Long term (current) use of oral hypoglycemic drugs; Z79.899 Other long term (current) drug therapy; Z88.8 Allergy status to other drugs, medicaments and biological substances
CPT/HCPCS: 99283

== ENCOUNTER → 2023-12-19 | Outpatient (CLI) | payer OTHER ==
--- NOTE | 2023-12-22 09:05 | CT ---
EXAMINATION TYPE: CT thoracic spine wo con DATE OF EXAM: 12/19/2023 COMPARISON: CTA chest May 08, 2021 HISTORY: Thoracic neuritis CT DLP: 1983 mGycm Automated exposure control for dose reduction was used. FINDINGS: Thoracic spine show stable and satisfactory alignment without evidence of acute fracture or dislocati on. Vertebral body heights are maintained. There is mild to moderate multilevel anterior and lateral spurring in the thoracic spine. Multilevel posterior spur disc complexes mildly efface the anterior t hecal sac in the mid to lower thoracic spine. Visualized ribs are intact bilaterally. Visualized lungs are clear. Visualized liver is low dense relative to the spleen consistent with mild diffuse fatty infiltration. Cholecystectomy clip is present. IMPRESSION: Multilevel degenerative changes are seen as detailed above.
== END | disposition home or self-care (01) ==
LOC: RADCTMAIN 12:03
PROVIDERS: ATTEND Family Medicine
DX: M51.14 Intervertebral disc disorders with radiculopathy, thoracic region (principal)
CPT/HCPCS: 72128

== ENCOUNTER 2024-10-25 06:40 | Day surgery (SDC) | payer OTHER ==
[2024-10-23 11:56] VITALS: BMI 48.2
[~2024-10-25 06:40] MED LIST: LACTATED RINGERS 1,000 ML IV SCH
[2024-10-25 07:07] VITALS: RESP 16; TEMP 96.4
[2024-10-25 07:10] LABS: Glucose,Whole Blood 298 mg/dL (70-110)
[2024-10-25] MEDS: INSULIN LISPRO (HumaLOG) 100 UNIT/ML 10 mL VL SQ ONE (07:40)
[2024-10-25] MEDS ORDERED: DEXAMETHASONE SOD PHOSPHATE 10 MG/ML 1 ML VIAL ONE (07:57)
[2024-10-25] MEDS ORDERED: IOPAMIDOL M300 15ML VIAL ONE (07:57)
--- NOTE | 2024-10-25 08:24 | P.PCN ---
Description of Procedure: PREOPERATIVE DIAGNOSIS: 1-thoracic radiculopathy . 2-thoracic degenerative disc disease. 3-thoracic spondylosis with lumbar facet arthropathy without myelopathy POSTOPERATIVE DIAGNOSIS: As above. PROCEDURE 1. Transforaminal epidural steroid injection under fluoroscopic guidance at RIGHT T10-11 level. (Fluoroscopy images stored on file in the radiology Department ) 2. Thoracic epidurogram . ANESTHESIA: Local with 1% lidocaine 5 ml. subcutaneously. Continuous pulse ox, EKG, blood pressure and verbal communication was maintained with the patient. EBL: Minimal PROCEDURE INDICATION: The patient with back pain and radiculopathy symptoms unresponsive to conservative treatment. The patient was seen and identified in the preoperative area. Risks, benefits, complications not limited to infection, bleeding, nerve damage, lung puncture and alternatives were discussed with the patient. The patient agreed to proceed with the procedure and signed the consent. IV was started, and vital signs were stable. PROCEDURE DESCRIPTION / TECHNIQUE: After getting consent, patient was taken to the OR and time out was completed. The patient was placed in the prone position on procedure table and a pillow was placed under the abdomen to reduce lumbar lordosis. The lumbosacral area was prepped and draped in the usual sterile fashion. Critical pause was taken. After injecting 5 mL of plain 1% lidocaine subcutaneously, under oblique view of the fluoroscope, a 22-gauge spinal needle was introduced under the tunnel view of the fluoroscope on the RIGHT side and the needle was advanced so that the tip of the needle was at the posterior inferior quadrant of the intervertebral foramen at the lateral view of the fluoroscope and in the lateral third of the facet column in the AP view of the fluoroscope. Negative CSF, negative blood, negative paresthesia. After needle position confirmation by AP and cross table lateral view, 3 mL of Isovue-M 200 contrast was injected under continuous fluoroscope. No contrast was noted in the intrathecal or intravascular space. The epidurogram was noted. Again after repeated negative aspiration 2.5 mL solution was injected which consists 0.5 mL of normal saline mixed with 2 mL of 20 mg dexamethasone. Needle was removed . At the end of the procedure, skin was cleansed, and bandages were applied. DISPOSITION / PLANS: No complication. The patient tolerated the procedure well. The patient was placed in a supine position and transferred to the recovery area in a stable condition for observation. There was no evidence of lower extremity motor or sensory deficit after the procedure. Patient was discharged from the recovery room after meeting discharge criteria. Home discharge instructions were given to the patient by the staff. The patient was reexamined prior to discharge.
--- NOTE | 2024-10-25 08:34 | FL ---
EXAMINATION TYPE: FL guided pain mgmt statistic DATE OF EXAM: 10/25/2024 CLINICAL INDICATION: Female, 34 years old with history of TRANSFORAMINAL EPI; PHH, pain. TECHNIQUE: Fluoroscopy. COMPARISON: None. FINDINGS: Fluoroscopic guidance was provided during pain relief procedure performed by Dr. Gomez . A total of 56.0 seconds of fluoroscopic time was utilized during the procedure and two spot images ar e acquired. Images acquired shows needle localization at the lower thoracic spine. Multilevel degene rative changes are present. Total DAP: 0.33936 mGym2. IMPRESSION: As Above. [facility], , 10/25/2024 8:32 AM
[2024-10-25 08:39] LABS: Glucose,Whole Blood 307 mg/dL (70-110)
[2024-10-25 08:43] VITALS: BP 133/84; PULSE 84
== END 2024-10-25 08:51 | disposition home or self-care (01) ==
LOC: ORPAIN 06:40
PROVIDERS: ATTEND Pain Medicine Interventional Pain Medicine
DX: M51.14 Intervertebral disc disorders with radiculopathy, thoracic region (principal); M47.816 Spondylosis without myelopathy or radiculopathy, lumbar region
CPT/HCPCS: 81025; 64479; 64480; J1100; Q9967

== ENCOUNTER → 2024-11-08 | Outpatient (CLI) | payer OTHER ==
[2024-11-08 10:17] VITALS: BP 123/80; PULSE 97; RESP 19; TEMP 96.5
--- NOTE | 2024-11-08 15:46 | P.PAINPG ---
Objective - Vital Signs Vital signs: Vital Signs Temp 96.5 F L 11/08/24 10:14 Pulse 97 11/08/24 10:14 Resp 19 11/08/24 10:14 BP 123/80 11/08/24 10:14 Pulse Ox 97 11/08/24 10:14 FiO2 Intake & Output 11/07/24 11/08/24 11/08/24 18:59 06:59 18:59 Weight 131.542 kg PQRS Measure Charge Sheet Mode of Arrival: Ambulatory Comment: HISTORY OF PRESENT ILLNESS: A 33 yr old female presents today w severe and chronic mid back pain > 3 mo secondary to radiculopathy, spondylosis and facet arthropathy without myelopathy for evaluation s/p R TFESI T10-T11/ T11-T12 #1. Pt states she experienced 70-80% pain relief x 2 wks s/p procedure. Pt states pain level is provoked at 6 /10 in intensity, constant, localized in the R thoracic spine, predominantly axial, throbbing in character w occasional shooting pain towards the R flank. Pain is provoked by laying supine. Pain is alleviated by PT x 6 wks which ended in Winter 2022, physician guided home exercises 4-5 times weekly since 2022, heat, medications, topical, repositioning and rest . Interventional procedures include R TFESI T10-T11/ T11-T12 x1 Medications include Ultram, Lidocaine, Trulicity REVIEW OF ORGAN SYSTEMS: CONSTITUTIONAL: No fevers or chills. No recent weight loss. NEUROLOGICAL: + numbness and tingling along the distal extremities. No seizure disorders or headaches. MUSCULOSKELETAL: + pain PSYCHIATRIC: Denies current depression or suicidal thoughts. Physical Examinations : Constitutional : Cooperative , not in acute distress . Neurologic : Cranial nerve II to XII intact. No focal neurological deficits. Psychiatric : alert & oriented x 3. Matching mood & appropriate affect. Judgment & insight intact. Musculoskeletal : Cervical Spine Motor strength in the deltoid and biceps: Normal right side. Normal Left side Motor strength biceps and the wrist extensors: Normal right side . Normal left side Motor strength in the triceps muscle: Normal right side. Normal left side Deep tendon reflexes: Normal at the biceps. Normal at Brachioradialis. Normal at triceps Vertebral body tenderness to deep palpation over Cervical facet loading test: positive bilaterally Spurling test: positive bilaterally Neck distraction test: positive bilaterally Leslie sign: positive bilaterally Thoracic spine Vertebral body TTP over T11 Zamudio test positive R T10-T11/ T11/T12 Lumbar spine Motor strength lower extremities ,thigh and legs 5/5 Right side , 5/5 Left side Deep tendon reflexes : Normal Knee Jerk. Normal Ankle Jerk Vertebral body tenderness over Zamudio Test positive Lumbar facet Loading Test: positive Right / positive Left Range of motion of the lumbar spine Flexion 30 degrees, extension 10 degrees Straight Leg Raise test: Left/ Right positive at degrees Phillip test: positive right / positive left. Severe tenderness over the Sacroiliac joint on the Right / Left sides Gaenslen test: positive bilaterally Seated flexion test: positive bilaterally. Sacral spine : Severe tenderness over the Sacroiliac joint: right side / left side Range of motion: Flexion of the lumbar spine <60 degrees Range of motion: Extension of the lumbar spine <20 degrees Gaenslen's Test positive Phillip test: positive right side / left side Thigh Thrust Test Sacral Thrust Test Imaging: CT non contrast thoracic spine from 12/19/23 reviewed Assessment/ Plan : mid to lower thoracic spondylosis Recommendation of R TFESI T10-T11/ T11-T12 #2. Risks, benefits of procedure discussed and patient verbalized understanding. Admits to anti- coagulant use or medical history of diabetes. Protocol for discontinuation/ continuation of medications leyla procedure discussed. All questions answered. I have spent greater than 30 minutes on patient care today. Dr Jha was available by phone for the evaluation of this patient. The time was used to review the medical records including relevant urine studies and Prescription history (MAPs), review of the available imaging, evaluation and examination of the patient, coordination of care with the medical staff and if applicable referring physicians, as well as creation of the medical record PQRS Narrative: Blood Pressure 123/80 Pain Intensity [Medial Back] 6 Scale Used Numeric (1 - 10) Hx Alcohol Use (MH) No Home Medications: Ambulatory Orders ALPRAZolam [Xanax] 0.5 mg PO DIRECTED PRN 04/10/21 Levothyroxine Sodium [Synthroid] 300 mcg PO DAILY 04/10/21 Metoclopramide [Reglan] 10 mg PO BID-W/MEALS PRN 04/10/21 Omeprazole 40 mg PO BID 09/09/21 Ibuprofen [Motrin] 600 mg PO Q6HR PRN #40 tab 09/11/21 Apixaban [Eliquis] 5 mg PO BID 10/23/24 Insulin Aspart Prot/Insuln Asp [Insulin Aspart Prot (Veu07-38) Pen] 40 units SQ TID 10/23/24 Propranolol [Inderal] 20 mg PO BID 10/23/24 Temazepam [Restoril] 15 mg PO HS PRN 10/23/24 lamoTRIgine [LaMICtal] 100 mg PO DAILY 10/23/24 traMADol HCL 50 mg PO TID PRN 10/23/24 Controlled Substance Measures - Controlled Substance Measures Is patient prescribed a controlled substance at discharge?: No
== END ==
LOC: PNWHC3 10:01
PROVIDERS: ATTEND Specialist
DX: M47.814 Spondylosis without myelopathy or radiculopathy, thoracic region (principal); G89.29 Other chronic pain; Z88.5 Allergy status to narcotic agent; Z88.8 Allergy status to other drugs, medicaments and biological substances
CPT/HCPCS: 99211